=== PATIENT | male | born 1935 | race Two or more races ===

== ENCOUNTER → 2016-09-09 | Outpatient (REF) | payer MEDICARE, MEDICAID ==
[2016-09-09 12:20] LABS: ALBUMIN 3.8 GM/DL (3.2-5.2); ALBUMIN/GLOBULIN RATIO 1.31 (1.00-1.93); BILIRUBIN,TOTAL 0.5 MG/DL (0.2-1.0); CALCIUM LEVEL 8.6 MG/DL (8.8-10.2); CREATININE FOR GFR 1.31 MG/DL (0.70-1.30); GLOMERULAR FILTRATION RATE 55.9 (>35); POTASSIUM SERUM 4.5 MEQ/L (3.5-5.1); TOTAL PROTEIN 6.7 GM/DL (6.4-8.2)
== END ==
LOC: M SFHCPLAZ 08:56
PROVIDERS: ATTEND Internal Medicine
DX: E10.9 Type 1 diabetes mellitus without complications (principal); R97.20 Elevated prostate specific antigen [PSA]

== ENCOUNTER → 2017-03-10 | Outpatient (REF) | payer MEDICARE, MEDICAID ==
[~2017-03-10] MED LIST: ATOR1TAB21 PO; CYCL5TAB PO; INSUHUMDS SQ; INSULANT SQ; LOSA50TA20 PO
[2017-03-10 11:30] LABS: MEAN CORPUSCULAR HEMOGLOBIN 31.3 pg (27.0-33.0); MEAN CORPUSCULAR HGB CONC 32.8 g/dl (32.0-36.5); MEAN CORPUSCULAR VOLUME 95.5 fl (80.0-96.0); RED CELL DISTRIBUTION WIDTH 12.8 % (11.5-14.5); WHITE BLOOD COUNT 6.4 K/mm3 (4.0-10.0)
[2017-03-10 12:59] LABS: ALBUMIN 3.8 GM/DL (3.2-5.2); ALBUMIN/GLOBULIN RATIO 1.23 (1.00-1.93); BILIRUBIN,TOTAL 0.6 MG/DL (0.2-1.0); CALCIUM LEVEL 8.9 MG/DL (8.8-10.2); CREATININE FOR GFR 1.38 MG/DL (0.70-1.30); GLOMERULAR FILTRATION RATE 52.5 (>35); POTASSIUM SERUM 4.9 MEQ/L (3.5-5.1); TOTAL PROTEIN 6.9 GM/DL (6.4-8.2)
== END ==
LOC: M LABDRAW1 08:06
PROVIDERS: ATTEND Internal Medicine
DX: I25.10 Atherosclerotic heart disease of native coronary artery without angina pectoris (principal); E10.9 Type 1 diabetes mellitus without complications; E78.00 Pure hypercholesterolemia, unspecified; R97.20 Elevated prostate specific antigen [PSA]

== ENCOUNTER 2017-04-22 09:18 | Emergency (ER) | payer MEDICARE, MEDICAID ==
[~2017-04-22] VITALS: Ht 170.2 cm; Wt 70.5 kg
[2017-04-22] MEDS ORDERED: LOSA50TA20 PO (09:41)
[2017-04-22] MEDS ORDERED: ATOR1TAB21 PO (09:41)
[2017-04-22] MEDS ORDERED: INSUHUMDS SQ (09:41)
[2017-04-22] MEDS ORDERED: INSULANT SQ (09:41)
--- NOTE | 2017-04-22 10:53 | REP ---
PORTABLE CHEST: AP portable view of the chest is performed and compared to a prior study of 01/14/2012. There is no acute infiltrate or pulmonary edema. Heart does not appear to be significantly enlarged. Mediastinal silhouette is unchanged. There are multiple sternal wires and mediastinal clips present. IMPRESSION: No acute infiltrate. Signed by Daniol Delgado MD 04/22/2017 04:41 P
[2017-04-22 10:54] LABS: BASO % 0.4 % (0.0-1.0); EOS # 0.2 K/mm3 (0.0-0.50); EOS % 4.4 % (0.0-3.0); LARGE UNSTAINED CELL # 0.1 K/mm3 (0.0-0.4); LARGE UNSTAINED CELL % 2.2 % (0.0-4.0); LYMPH # 1.1 K/mm3 (1.5-4.5); LYMPH % 21.1 % (24.0-44.0); MEAN CORPUSCULAR HEMOGLOBIN 31.3 pg (27.0-33.0); MEAN CORPUSCULAR HGB CONC 32.6 g/dl (32.0-36.5); MEAN CORPUSCULAR VOLUME 95.8 fl (80.0-96.0); MONO # 0.5 K/mm3 (0.0-0.8); MONO % 8.5 % (0.0-5.0); NEUTROPHILS # 3.4 K/mm3 (1.8-7.7); NEUTROPHILS % 63.5 % (36.0-66.0); PLATELET COUNT, AUTOMATED 231 k/mm3 (150-450); RED CELL DISTRIBUTION WIDTH 12.5 % (11.5-14.5); WHITE BLOOD COUNT 5.3 K/mm3 (4.0-10.0)
[2017-04-22 11:09] LABS: INR 1.1
[2017-04-22 11:10] LABS: ALBUMIN 3.7 GM/DL (3.2-5.2); ALBUMIN/GLOBULIN RATIO 0.95 (1.00-1.93); ALKALINE PHOSPHATASE 93 U/L (45-117); ALT/SGPT 22 U/L (12-78); ANION GAP 5 MEQ/L (8-16); AST/SGOT 38 U/L (15-37); BILIRUBIN,DIRECT 0.2 MG/DL (0.0-0.2); BILIRUBIN,TOTAL 0.7 MG/DL (0.2-1.0); BLOOD UREA NITROGEN 31 MG/DL (7-18); CALCIUM LEVEL 8.6 MG/DL (8.8-10.2); CARBON DIOXIDE LEVEL 29 MEQ/L (21-32); CHLORIDE LEVEL 103 MEQ/L (98-107); CREATININE FOR GFR 1.56 MG/DL (0.70-1.30); FREE T4 1.13 NG/DL (0.76-1.46); GLOMERULAR FILTRATION RATE 45.6 (>35); GLUCOSE, FASTING 298 MG/DL (83-110); POTASSIUM SERUM 4.9 MEQ/L (3.5-5.1); SODIUM LEVEL 137 MEQ/L (136-145); TOTAL PROTEIN 7.6 GM/DL (6.4-8.2)
[2017-04-22 12:48] VITALS: BP 192/81
[2017-04-22] MEDS ORDERED: CYCL5TAB PO (12:58)
[2017-04-22] MEDS ORDERED: CYCLOBENZAPRINE 5MG TABLET PO ONE (13:00)
[2017-04-22] MEDS ORDERED: ACETAMINOPHEN TAB 650MG DOSE (2X325MG) PO ONE (13:00)
--- NOTE | 2017-04-22 18:36 | ECGEPIP ---
Stationary ECG Study [facility] - ED Test Date: 2017-04-22 Pat Name: CEDRIC STEELE Department: Room: - Gender: M Cash Surrender Calculator: DAVE : 1935 Requested By: Helen Toro Order Number: [id number] Reading MD: Yg Novoa Measurements Intervals [place] Rate: 58 P: -4 NH: 168 QRS: 5 QRSD: 86 T: 43 QT: 401 QTc: 396 Interpretive Statements SINUS BRADYCARDIA Electronically Signed On 04-22-2017 18:36:34 EDT by Yg Novoa
== END 2017-04-22 13:14 | disposition home or self-care (01) ==
LOC: M ED 09:18
DX: S16.1XXA Strain of muscle, fascia and tendon at neck level, initial encounter (principal); X58.XXXA Exposure to other specified factors, initial encounter; Y92.9 Unspecified place or not applicable; Y93.9 Activity, unspecified; Y99.9 Unspecified external cause status; R00.1 Bradycardia, unspecified; I51.9 Heart disease, unspecified; E11.9 Type 2 diabetes mellitus without complications; I10 Essential (primary) hypertension; Z95.1 Presence of aortocoronary bypass graft; Z79.4 Long term (current) use of insulin; Z79.899 Other long term (current) drug therapy

== ENCOUNTER → 2017-09-23 | Outpatient (REF) | payer MEDICARE, MEDICAID ==
[2017-09-23 11:10] LABS: ALBUMIN 3.8 GM/DL (3.2-5.2); ALBUMIN/GLOBULIN RATIO 1.36 (1.00-1.93); ALKALINE PHOSPHATASE 89 U/L (45-117); ALT/SGPT 14 U/L (12-78); ANION GAP 9 MEQ/L (8-16); AST/SGOT 16 U/L (7-37); BILIRUBIN,TOTAL 0.7 MG/DL (0.2-1.0); BLOOD UREA NITROGEN 28 MG/DL (7-18); CALCIUM LEVEL 8.8 MG/DL (8.8-10.2); CARBON DIOXIDE LEVEL 26 MEQ/L (21-32); CHLORIDE LEVEL 106 MEQ/L (98-107); CREATININE FOR GFR 1.34 MG/DL (0.70-1.30); GLOMERULAR FILTRATION RATE 54.3 (>35); GLUCOSE, FASTING 161 MG/DL (70-100); MAGNESIUM LEVEL 2.1 MG/DL (1.8-2.4); SODIUM LEVEL 141 MEQ/L (136-145); TOTAL PROTEIN 6.6 GM/DL (6.4-8.2)
[2017-09-23 11:13] LABS: POTASSIUM SERUM 5.4 MEQ/L (3.5-5.1)
[2017-09-23 11:38] LABS: ESTIMATED AVERAGE GLUCOSE 203 MG/DL (60-110); HEMOGLOBIN A1c 8.7 %
[2017-09-23 11:44] LABS: MALB URINE SIEMENS 33.9 MG/L; MAU/CREAT RATIO 51.3 MCG/MG (0.0-30.0)
[2017-09-23 12:19] LABS: PTH INTACT 107.6 PG/ML (14.0-72.0)
== END ==
LOC: M SFHCPLAZ 07:45
DX: E10.9 Type 1 diabetes mellitus without complications (principal); I10 Essential (primary) hypertension; N18.3 Chronic kidney disease, stage 3 (moderate)
CPT/HCPCS: 83735

== ENCOUNTER 2017-10-10 18:46 | Emergency (ER) | payer MEDICARE, MEDICAID ==
[2017-10-10] MEDS: NORCO 5/325MG TABLET (BULK FOR ED) PO (19:36)
[2017-10-10] MEDS: NORCO, ANEXSIA 5/325MG TABLET (HYDROcodone/ACETAMINOPHEN) PO (19:36)
== END 2017-10-10 19:40 | disposition home or self-care (01) ==
LOC: M ED 18:46
DX: S42.294A Other nondisplaced fracture of upper end of right humerus, initial encounter for closed fracture (principal); W01.190A Fall on same level from slipping, tripping and stumbling with subsequent striking against furniture, initial encounter; Y92.099 Unspecified place in other non-institutional residence as the place of occurrence of the external cause; Y93.9 Activity, unspecified; E11.9 Type 2 diabetes mellitus without complications; I10 Essential (primary) hypertension; Z95.1 Presence of aortocoronary bypass graft; Z79.82 Long term (current) use of aspirin; Z79.4 Long term (current) use of insulin; Z79.899 Other long term (current) drug therapy
CPT/HCPCS: 73030

== ENCOUNTER 2017-10-21 23:39 | Emergency (ER) | payer MEDICARE, MEDICAID ==
[2017-10-22 00:46] LABS: HEMATOCRIT 29.5 % (42.0-52.0); HEMOGLOBIN 9.8 g/dl (14.0-18.0); MEAN CORPUSCULAR HEMOGLOBIN 30.5 pg (27.0-33.0); MEAN CORPUSCULAR HGB CONC 33.2 g/dl (32.0-36.5); MEAN CORPUSCULAR VOLUME 91.9 fl (80.0-96.0); PLATELET COUNT, AUTOMATED 335 10^3/uL (150-450); RED BLOOD COUNT 3.21 10^6/uL (4.30-6.10); RED CELL DISTRIBUTION WIDTH 12.2 % (11.5-14.5); VENOUS BASE EXCESS -2.2 (-2.0-2.0); VENOUS HCO3 21.1 MEQ/L (23.0-27.0); VENOUS O2 SATURATION 66.1 % (60.0-80.0); VENOUS PARTIAL PRESSURE CO2 31.3 mmHg (38.0-50.0); VENOUS PARTIAL PRESSURE O2 32.3 mmHg (30.0-50.0); VENOUS PH 7.447 UNITS (7.330-7.430); VENOUS STANDARD HCO3 22.1 MEQ/L; VENOUS TOTAL CO2 22.1 MEQ/L (24.0-28.0); WHITE BLOOD COUNT 18.9 10^3/uL (4.0-10.0)
[2017-10-22] MEDS: NS 500 ML IV (00:51)
[2017-10-22 00:54] LABS: POSITIVE MORPH POS FLAG
[2017-10-22 00:55] LABS: ADD MANUAL DIFFER YES; DIFF SLIDE NUMBER 85
[2017-10-22 01:16] LABS: BANDS 1 % (< 11); EOSINOPHILS 1 % (0-5); LYMPHOCYTES 3 % (16-52); MONOCYTES 4 % (0-8); NEUTROPHILS 91 % (35-75); PLATELET ESTIMATE NORMAL (NORMAL)
[2017-10-22 01:17] LABS: OSMOLALITY SERUM 282 MOSM/KG (280-301)
[2017-10-22 01:20] LABS: ALBUMIN 2.7 GM/DL (3.2-5.2); ALBUMIN/GLOBULIN RATIO 0.71 (1.00-1.93); ALKALINE PHOSPHATASE 81 U/L (45-117); ALT/SGPT 17 U/L (12-78); ANION GAP 10 MEQ/L (8-16); BLOOD UREA NITROGEN 28 MG/DL (7-18); CALCIUM LEVEL 8.1 MG/DL (8.8-10.2); CARBON DIOXIDE LEVEL 25 MEQ/L (21-32); CHLORIDE LEVEL 99 MEQ/L (98-107); CK-MB VALUE MASS 1.4 NG/ML (0.0-3.6); CPK CREATINE PHOSPHOKINASE 408 U/L (39-308); CREATININE FOR GFR 1.59 MG/DL (0.70-1.30); ETHYL ALCOHOL (ETHANOL) < 0.003 % (0.000-0.010); GLOMERULAR FILTRATION RATE 44.5 (>35); GLUCOSE, FASTING 91 MG/DL (70-100); MB/CK RELATIVE INDEX 0.34 (< OR =4); POTASSIUM SERUM 3.9 MEQ/L (3.5-5.1); SALICYLATE LEVEL < 1.7 MG/DL (5.0-30.0); SODIUM LEVEL 134 MEQ/L (136-145); TOTAL PROTEIN 6.5 GM/DL (6.4-8.2); TROPONIN I < 0.02 NG/ML (< 0.10)
[2017-10-22 01:33] LABS: ACETAMINOPHEN LEVEL < 2.0 UG/ML (10.0-30.0); BILIRUBIN,TOTAL 1.1 MG/DL (0.2-1.0)
[2017-10-22 01:34] LABS: AST/SGOT 35 U/L (7-37); BILIRUBIN,DIRECT 0.4 MG/DL (0.0-0.2)
[2017-10-22 01:36] LABS: AMPHETAMINES LEVEL URINE NEGATIVE (NEGATIVE); BARBITURATES URINE NEGATIVE (NEGATIVE); BENZODIAZEPINES URINE NEGATIVE (NEGATIVE); CANNABINOIDS URINE NEGATIVE (NEGATIVE); COCAINE METABOLITE URINE NEGATIVE (NEGATIVE); METHADONE URINE NEGATIVE (NEGATIVE); OPIATES URINE POSITIVE (NEGATIVE); PHENCYCLIDINE URINE NEGATIVE (NEGATIVE)
[2017-10-22 01:59] LABS: AMORPHOUS SEDIMENT RFX SMALL (NEGATIVE); KETONE, URINE AUTO RFX TRACE mg/dL (NEGATIVE); LEUKOCYTE ESTERASE UR AUTO RFX NEGATIVE (NEGATIVE); MUCUS, URINE RFX SMALL (NEGATIVE); NITRITE, URINE AUTO RFX NEGATIVE (NEGATIVE); RBC, URINE AUTO RFX 2 /HPF (0-3); SPECIFIC GRAVITY UR AUTO RFX 1.014 (1.002-1.035); SQUAM EPITHELIAL CELL UR AURFX 0 /HPF (0-6); WBC, URINE AUTO RFX 1 /HPF (0-3)
[2017-10-22] MEDS: ACETAMINOPHEN TAB 650MG DOSE (2X325MG) PO (02:09)
[2017-10-22] MEDS: PIPERACILLIN/TAZOBACTAM SOD 3.375 GM in APPROPRIATE DILUENT 1 EA IV (03:00)
[2017-10-22 10:33] LABS: BEDSIDE GLUCOSE 100 MG/DL (83-110)
== END 2017-10-22 05:04 | disposition short-term general hospital (02) ==
LOC: M ED 23:39
DX: R41.82 Altered mental status, unspecified (principal); T84.59XA Infection and inflammatory reaction due to other internal joint prosthesis, initial encounter; Y79.2 Prosthetic and other implants, materials and accessory orthopedic devices associated with adverse incidents; I10 Essential (primary) hypertension; E78.00 Pure hypercholesterolemia, unspecified; E11.9 Type 2 diabetes mellitus without complications; Z79.899 Other long term (current) drug therapy; Z79.01 Long term (current) use of anticoagulants; Z79.4 Long term (current) use of insulin
CPT/HCPCS: J2543

== ENCOUNTER 2017-11-20 21:01 | Inpatient (IN) | payer MEDICARE, MEDICAID ==
[2017-11-20] MEDS ORDERED: LORazepam 2 MG/ML VIAL (J2060) As Ordered (21:34)
[2017-11-20] MEDS ORDERED: HALOPERIDOL 5 MG/ML VIAL (J1630) As Ordered (21:44)
[2017-11-20] MEDS: LORazepam 2 MG/ML VIAL (J2060) IV (21:44)
[2017-11-20] MEDS: NS 1,000 ML IV ×2 (21:45→22:45)
[2017-11-20] MEDS: HALOPERIDOL 5 MG/ML VIAL (J1630) IM (21:48)
[2017-11-20 22:04] LABS: VENOUS HCO3 18.7 MEQ/L (23.0-27.0); VENOUS O2 SATURATION 98.9 % (60.0-80.0); VENOUS PARTIAL PRESSURE CO2 30.5 mmHg (38.0-50.0); VENOUS PARTIAL PRESSURE O2 136.5 mmHg (30.0-50.0); VENOUS PH 7.406 UNITS (7.330-7.430); VENOUS STANDARD HCO3 20.4 MEQ/L; VENOUS TOTAL CO2 19.7 MEQ/L (24.0-28.0)
[2017-11-20 22:08] LABS: BASO % 0.4 % (0.0-1.0); EOS # 0.4 10^3/uL (0.0-0.50); EOS % 4.9 % (0.0-3.0); HEMATOCRIT 32.3 % (42.0-52.0); HEMOGLOBIN 10.4 g/dl (14.0-18.0); IMMATURE GRANULOCYTE % 0.3 % (0-3.0); LYMPH # 1.8 10^3/uL (1.5-4.5); LYMPH % 25.1 % (24.0-44.0); MEAN CORPUSCULAR HEMOGLOBIN 30.8 pg (27.0-33.0); MEAN CORPUSCULAR HGB CONC 32.2 g/dl (32.0-36.5); MEAN CORPUSCULAR VOLUME 95.6 fl (80.0-96.0); MONO # 0.9 10^3/uL (0.0-0.8); MONO % 12.2 % (0.0-5.0); NEUTROPHILS # 4.1 10^3/uL (1.8-7.7); NEUTROPHILS % 57.1 % (36.0-66.0); PLATELET COUNT, AUTOMATED 303 10^3/uL (150-450); RED BLOOD COUNT 3.38 10^6/uL (4.30-6.10); RED CELL DISTRIBUTION WIDTH 14.3 % (11.5-14.5); WHITE BLOOD COUNT 7.2 10^3/uL (4.0-10.0)
[2017-11-20 22:10] LABS: KETONE, URINE AUTO RFX NEGATIVE (NEGATIVE); LEUKOCYTE ESTERASE UR AUTO RFX NEGATIVE (NEGATIVE); NITRITE, URINE AUTO RFX NEGATIVE (NEGATIVE); RBC, URINE AUTO RFX 2 /HPF (0-3); SPECIFIC GRAVITY UR AUTO RFX 1.024 (1.002-1.035); SQUAM EPITHELIAL CELL UR AURFX 1 /HPF (0-6); WBC, URINE AUTO RFX 0 /HPF (0-3)
[2017-11-20 22:27] LABS: AMMONIA 30 uMOL/L (<32)
[2017-11-20 22:30] LABS: OSMOLALITY SERUM 312 MOSM/KG (280-301)
[2017-11-20 22:36] LABS: LACTIC ACID SEPSIS PROTOCOL 6.6 MMOL/L (0.4-2.0)
[2017-11-20 22:41] LABS: ALBUMIN 3.7 GM/DL (3.2-5.2); ALBUMIN/GLOBULIN RATIO 1.03 (1.00-1.93); ALKALINE PHOSPHATASE 152 U/L (45-117); ALT/SGPT 18 U/L (12-78); ANION GAP 16 MEQ/L (8-16); AST/SGOT 15 U/L (7-37); BILIRUBIN,DIRECT 0.2 MG/DL (0.0-0.2); BILIRUBIN,TOTAL 0.5 MG/DL (0.2-1.0); BLOOD UREA NITROGEN 31 MG/DL (7-18); CALCIUM LEVEL 8.6 MG/DL (8.8-10.2); CARBON DIOXIDE LEVEL 19 MEQ/L (21-32); CHLORIDE LEVEL 101 MEQ/L (98-107); CPK CREATINE PHOSPHOKINASE 90 U/L (39-308); CREATININE FOR GFR 1.67 MG/DL (0.70-1.30); POTASSIUM SERUM 4.4 MEQ/L (3.5-5.1); SODIUM LEVEL 136 MEQ/L (136-145); TOTAL PROTEIN 7.3 GM/DL (6.4-8.2); TROPONIN I 0.02 NG/ML (< 0.10)
[2017-11-20 22:44] LABS: GLUCOSE, FASTING 478 MG/DL (70-100)
[2017-11-20 22:51] LABS: CK-MB VALUE MASS 1.9 NG/ML (<3.6); MB/CK RELATIVE INDEX 2.11 (< OR =4)
[2017-11-21] MEDS ORDERED: PIPERACILLIN/TAZOBACTAM SOD 3.375 GM in APPROPRIATE DILUENT 1 EA IV (03:00)
[2017-11-21] MEDS ORDERED: GLUCOSE 4 GM CHEW TABLET PO (03:15)
[2017-11-21] MEDS ORDERED: GLUCAGON FOR INJ 1 MG VIAL (J1610) SC (03:15)
[2017-11-21 03:16] LABS: BEDSIDE GLUCOSE 529 MG/DL (83-110)
[2017-11-21 04:14] LABS: BEDSIDE GLUCOSE 431 MG/DL (83-110)
[2017-11-21] MEDS: NS 1,000 ML IV ×3 (04:55→14:16)
[2017-11-21] MEDS: HumaLOG INSULIN (NovoLOG) PER UNIT SC ×5 (04:56→21:00)
[2017-11-21] MEDS: VANCOMYCIN HCL 1,000 MG, VIAL MATE ADAPTER 1 EACH in D5W 250 ML IV ×2 (04:56→22:15)
[2017-11-21] MEDS: PIPERACILLIN/TAZOBACTAM SOD 3.375 GM in APPROPRIATE DILUENT 1 EA IV (05:16)
[2017-11-21] MEDS: HEPARIN SOD (PORCINE) 5000 UNITS/ML VIAL SC ×3 (06:44→22:17)
[2017-11-21 06:55] LABS: BEDSIDE GLUCOSE 327 MG/DL (83-110)
[2017-11-21] MEDS: hydrALAZINE INJ 20 MG/ML VIAL IV ×5 (07:10→22:16)
[2017-11-21 08:01] LABS: VENOUS BASE EXCESS -1.4 (-2.0-2.0); VENOUS HCO3 21.3 MEQ/L (23.0-27.0); VENOUS O2 SATURATION 99.3 % (60.0-80.0); VENOUS PARTIAL PRESSURE CO2 29.2 mmHg (38.0-50.0); VENOUS PARTIAL PRESSURE O2 160.7 mmHg (30.0-50.0); VENOUS PH 7.481 UNITS (7.330-7.430); VENOUS STANDARD HCO3 23.4 MEQ/L; VENOUS TOTAL CO2 22.2 MEQ/L (24.0-28.0)
[2017-11-21] MEDS: LEVEMIR (INSULIN DETEMIR) 1 UNITS/0.01ML SC (08:02)
[2017-11-21 08:04] LABS: BASO % 0.4 % (0.0-1.0); EOS % 0.4 % (0.0-3.0); HEMATOCRIT 29.9 % (42.0-52.0); HEMOGLOBIN 9.7 g/dl (14.0-18.0); IMMATURE GRANULOCYTE % 0.4 % (0-3.0); LYMPH # 0.8 10^3/uL (1.5-4.5); LYMPH % 10.7 % (24.0-44.0); MEAN CORPUSCULAR HEMOGLOBIN 30.3 pg (27.0-33.0); MEAN CORPUSCULAR HGB CONC 32.4 g/dl (32.0-36.5); MEAN CORPUSCULAR VOLUME 93.4 fl (80.0-96.0); MONO # 0.4 10^3/uL (0.0-0.8); MONO % 5.6 % (0.0-5.0); NEUTROPHILS % 82.5 % (36.0-66.0); PLATELET COUNT, AUTOMATED 282 10^3/uL (150-450); RED CELL DISTRIBUTION WIDTH 14.1 % (11.5-14.5); WHITE BLOOD COUNT 7.3 10^3/uL (4.0-10.0)
[2017-11-21 08:20] LABS: INR 1.17; PROTHROMBIN TIME 15.1 SECONDS (12.4-14.5)
[2017-11-21 08:21] LABS: PARTIAL THROMBOPLASTIN TIME 58.8 SECONDS (26.8-37.9)
[2017-11-21 08:31] LABS: ALBUMIN 3.2 GM/DL (3.2-5.2); ALBUMIN/GLOBULIN RATIO 1.03 (1.00-1.93); ALKALINE PHOSPHATASE 138 U/L (45-117); ALT/SGPT 14 U/L (12-78); ANION GAP 7 MEQ/L (8-16); AST/SGOT 12 U/L (7-37); BILIRUBIN,TOTAL 0.7 MG/DL (0.2-1.0); BLOOD UREA NITROGEN 28 MG/DL (7-18); C REACTIVE PROTEIN QUANTITATIV 0.69 MG/DL (0.00-0.30); CALCIUM LEVEL 8.1 MG/DL (8.8-10.2); CARBON DIOXIDE LEVEL 24 MEQ/L (21-32); CHLORIDE LEVEL 106 MEQ/L (98-107); CPK CREATINE PHOSPHOKINASE 197 U/L (39-308); CREATININE FOR GFR 1.31 MG/DL (0.70-1.30); GLOMERULAR FILTRATION RATE 55.6 (>35); GLUCOSE, FASTING 321 MG/DL (70-100); SODIUM LEVEL 137 MEQ/L (136-145); TOTAL PROTEIN 6.3 GM/DL (6.4-8.2)
[2017-11-21 08:32] LABS: CK-MB VALUE MASS 1.2 NG/ML (<3.6)
[2017-11-21] MEDS: ATORVASTATIN 20 MG TAB PO (09:00)
[2017-11-21] MEDS: ASPIRIN 81 MG ENTERIC TAB PO (09:00)
[2017-11-21] MEDS: LOSARTAN 50 MG TAB PO (09:00)
[2017-11-21] MEDS: LORazepam 2 MG/ML VIAL (J2060) IV (09:09)
[2017-11-21 09:19] LABS: ACETONE/KETONE 2.45 MG/DL (<2.81)
[2017-11-21] MEDS: HALOPERIDOL 5 MG/ML VIAL (J1630) IV (09:30)
[2017-11-21 11:15] LABS: BEDSIDE GLUCOSE 101 MG/DL (83-110)
[2017-11-21] MEDS: DEXTROSE 50% 50 ML SYRINGE IV (12:47)
[2017-11-21 12:52] LABS: BEDSIDE GLUCOSE 59 MG/DL (83-110)
[2017-11-21 13:24] LABS: BEDSIDE GLUCOSE 116 MG/DL (83-110)
[2017-11-21 14:35] LABS: CK-MB VALUE MASS < 1.0 NG/ML (<3.6); CPK CREATINE PHOSPHOKINASE 194 U/L (39-308); MB/CK RELATIVE INDEX 0.51 (< OR =4); TROPONIN I 0.07 NG/ML (< 0.10)
[2017-11-21 15:20] LABS: BEDSIDE GLUCOSE 96 MG/DL (83-110)
[2017-11-21] MEDS: D5W/0.9% SODIUM CHLORIDE 1,000 ML IV ×2 (15:48→22:17)
[2017-11-21 18:46] LABS: BEDSIDE GLUCOSE 160 MG/DL (83-110)
[2017-11-21 18:48] LABS: CSF TUBE# GLU TUBE 2; CSF TUBE# TP TUBE 2; GLUCOSE CSF 65 MG/DL (40-75); TOTAL PROTEIN,CSF 77.6 MG/DL (15-45)
[2017-11-21 19:37] LABS: CSF RBC < 2 10^3/uL (<2); CSF WBC 20 /uL (0-10)
[2017-11-21 19:39] LABS: CSF MONONUCLEAR CELL % 31.8 % (0-0); CSF POLYMORPHONUCLEAR CELL % 68.2 % (0-0); CSF RBC < 2 10^3/uL (<2); CSF WBC 22 /uL (0-10)
[2017-11-21 19:46] LABS: APPEARANCE, CSF CLEAR (CLEAR); COLOR, CSF COLORLESS (COLORLESS); CSF DIFF IF INDICATED? YES (NO); CSF TUBE# CELL CNT TUBE 1
[2017-11-21 19:47] LABS: APPEARANCE, CSF CLEAR (CLEAR); COLOR, CSF COLORLESS (COLORLESS); CSF DIFF IF INDICATED? YES (NO); CSF TUBE# CELL CNT TUBE 4
[2017-11-21] MEDS: levETIRAcetam 250MG TABLET (KEPPRA) PO (21:00)
[2017-11-21 21:33] LABS: BEDSIDE GLUCOSE 100 MG/DL (83-110)
[2017-11-21] MEDS: cefTRIAXone SOD 2 GM in D5W MINI-BAG PLUS 50 ML IV (23:25)
[2017-11-22] MEDS: AMPICILLIN SOD 2 GM in D5W MINI-BAG PLUS 100 ML IV ×4 (00:42→17:14)
[2017-11-22] MEDS: hydrALAZINE INJ 20 MG/ML VIAL IV ×6 (02:00→21:18)
[2017-11-22 04:36] LABS: BASO % 0.3 % (0.0-1.0); EOS # 0.2 10^3/uL (0.0-0.50); EOS % 3.2 % (0.0-3.0); HEMATOCRIT 31.1 % (42.0-52.0); HEMOGLOBIN 9.9 g/dl (14.0-18.0); IMMATURE GRANULOCYTE % 0.1 % (0-3.0); LYMPH # 1.4 10^3/uL (1.5-4.5); LYMPH % 19.5 % (24.0-44.0); MEAN CORPUSCULAR HEMOGLOBIN 29.4 pg (27.0-33.0); MEAN CORPUSCULAR HGB CONC 31.8 g/dl (32.0-36.5); MEAN CORPUSCULAR VOLUME 92.3 fl (80.0-96.0); MONO # 0.8 10^3/uL (0.0-0.8); MONO % 10.6 % (0.0-5.0); NEUTROPHILS # 4.8 10^3/uL (1.8-7.7); NEUTROPHILS % 66.3 % (36.0-66.0); PLATELET COUNT, AUTOMATED 285 10^3/uL (150-450); RED BLOOD COUNT 3.37 10^6/uL (4.30-6.10); RED CELL DISTRIBUTION WIDTH 14.3 % (11.5-14.5); WHITE BLOOD COUNT 7.2 10^3/uL (4.0-10.0)
[2017-11-22 04:57] LABS: ANION GAP 10 MEQ/L (8-16); BLOOD UREA NITROGEN 22 MG/DL (7-18); CALCIUM LEVEL 7.8 MG/DL (8.8-10.2); CARBON DIOXIDE LEVEL 22 MEQ/L (21-32); CHLORIDE LEVEL 106 MEQ/L (98-107); CREATININE FOR GFR 1.15 MG/DL (0.70-1.30); GLOMERULAR FILTRATION RATE > 60.0 (>35); GLUCOSE, FASTING 336 MG/DL (70-100); MAGNESIUM LEVEL 1.6 MG/DL (1.8-2.4); POTASSIUM SERUM 3.7 MEQ/L (3.5-5.1); SODIUM LEVEL 138 MEQ/L (136-145)
[2017-11-22] MEDS: D5W/0.9% SODIUM CHLORIDE 1,000 ML IV (05:54)
[2017-11-22] MEDS: HEPARIN SOD (PORCINE) 5000 UNITS/ML VIAL SC ×3 (05:55→21:17)
[2017-11-22] MEDS: HumaLOG INSULIN (NovoLOG) PER UNIT SC ×4 (07:38→21:00)
[2017-11-22] MEDS: ATORVASTATIN 20 MG TAB PO (08:23)
[2017-11-22] MEDS: ASPIRIN 81 MG ENTERIC TAB PO (08:24)
[2017-11-22] MEDS: LOSARTAN 50 MG TAB PO (08:24)
[2017-11-22] MEDS: LEVEMIR (INSULIN DETEMIR) 1 UNITS/0.01ML SC (08:25)
[2017-11-22] MEDS: MAG SULF 1GM/100ML (MAG RUN) 1 GM in APPROPRIATE DILUENT 1 EA IV (08:50)
[2017-11-22] MEDS: cefTRIAXone SOD 2 GM in D5W MINI-BAG PLUS 50 ML IV ×2 (09:47→21:18)
[2017-11-22 11:19] LABS: BEDSIDE GLUCOSE 263 MG/DL (83-110)
[2017-11-22] MEDS ORDERED: PROHANCE 279.3MG/ML 15ML VIAL (A9576) As Ordered (12:10)
[2017-11-22] MEDS ORDERED: levETIRAcetam INJection 500 MG in D5W MINI-BAG PLUS 100 ML IV (15:00)
[2017-11-22 16:56] LABS: BEDSIDE GLUCOSE 206 MG/DL (83-110)
[2017-11-22] MEDS: levETIRAcetam INJection 500 MG in D5W MINI-BAG PLUS 100 ML IV (17:57)
[2017-11-22] MEDS: VANCOMYCIN HCL 1,000 MG, VIAL MATE ADAPTER 1 EACH in D5W 250 ML IV (22:20)
[2017-11-23] MEDS: AMPICILLIN SOD 2 GM in D5W MINI-BAG PLUS 100 ML IV ×3 (00:46→12:15)
[2017-11-23] MEDS: hydrALAZINE INJ 20 MG/ML VIAL IV ×6 (03:00→22:00)
[2017-11-23 03:59] LABS: BASO % 0.5 % (0.0-1.0); EOS # 0.8 10^3/uL (0.0-0.50); EOS % 10.1 % (0.0-3.0); HEMATOCRIT 31.8 % (42.0-52.0); HEMOGLOBIN 10.3 g/dl (14.0-18.0); IMMATURE GRANULOCYTE % 0.4 % (0-3.0); LYMPH % 24.6 % (24.0-44.0); MEAN CORPUSCULAR HEMOGLOBIN 30.2 pg (27.0-33.0); MEAN CORPUSCULAR HGB CONC 32.4 g/dl (32.0-36.5); MEAN CORPUSCULAR VOLUME 93.3 fl (80.0-96.0); MONO # 0.9 10^3/uL (0.0-0.8); MONO % 10.8 % (0.0-5.0); NEUTROPHILS # 4.3 10^3/uL (1.8-7.7); NEUTROPHILS % 53.6 % (36.0-66.0); PLATELET COUNT, AUTOMATED 286 10^3/uL (150-450); RED BLOOD COUNT 3.41 10^6/uL (4.30-6.10); RED CELL DISTRIBUTION WIDTH 14.1 % (11.5-14.5); WHITE BLOOD COUNT 8.1 10^3/uL (4.0-10.0)
[2017-11-23 04:23] LABS: ANION GAP 7 MEQ/L (8-16); BLOOD UREA NITROGEN 20 MG/DL (7-18); CARBON DIOXIDE LEVEL 24 MEQ/L (21-32); CHLORIDE LEVEL 106 MEQ/L (98-107); CREATININE FOR GFR 1.35 MG/DL (0.70-1.30); GLOMERULAR FILTRATION RATE 53.7 (>35); GLUCOSE, FASTING 255 MG/DL (70-100); MAGNESIUM LEVEL 1.9 MG/DL (1.8-2.4); SODIUM LEVEL 137 MEQ/L (136-145)
[2017-11-23] MEDS: HEPARIN SOD (PORCINE) 5000 UNITS/ML VIAL SC ×3 (05:33→22:19)
[2017-11-23] MEDS: LACTOBACILLUS ACIDOPHILUS CAP (BACID) PO ×3 (08:17→22:18)
[2017-11-23] MEDS: ASPIRIN 81 MG ENTERIC TAB PO (08:17)
[2017-11-23] MEDS: LOSARTAN 50 MG TAB PO (08:17)
[2017-11-23] MEDS: ATORVASTATIN 20 MG TAB PO (08:17)
[2017-11-23] MEDS: LEVEMIR (INSULIN DETEMIR) 1 UNITS/0.01ML SC (08:18)
[2017-11-23] MEDS: HumaLOG INSULIN (NovoLOG) PER UNIT SC ×4 (08:18→20:55)
[2017-11-23] MEDS: cefTRIAXone SOD 2 GM in D5W MINI-BAG PLUS 50 ML IV (10:13)
[2017-11-23] MEDS: ACETAMINOPHEN TAB 650MG DOSE (2X325MG) PO ×2 (18:16→22:19)
[2017-11-23 20:51] LABS: BEDSIDE GLUCOSE 148 MG/DL (83-110)
[2017-11-24] MEDS: HEPARIN SOD (PORCINE) 5000 UNITS/ML VIAL SC ×3 (05:26→21:12)
[2017-11-24 05:33] LABS: BASO % 0.5 % (0.0-1.0); EOS % 16.1 % (0.0-3.0); HEMOGLOBIN 9.4 g/dl (14.0-18.0); IMMATURE GRANULOCYTE % 0.3 % (0-3.0); LYMPH # 1.7 10^3/uL (1.5-4.5); LYMPH % 27.6 % (24.0-44.0); MEAN CORPUSCULAR HEMOGLOBIN 30.5 pg (27.0-33.0); MEAN CORPUSCULAR HGB CONC 32.4 g/dl (32.0-36.5); MEAN CORPUSCULAR VOLUME 94.2 fl (80.0-96.0); MONO # 0.7 10^3/uL (0.0-0.8); MONO % 10.7 % (0.0-5.0); NEUTROPHILS # 2.8 10^3/uL (1.8-7.7); NEUTROPHILS % 44.8 % (36.0-66.0); PLATELET COUNT, AUTOMATED 274 10^3/uL (150-450); RED BLOOD COUNT 3.08 10^6/uL (4.30-6.10); RED CELL DISTRIBUTION WIDTH 14.3 % (11.5-14.5); WHITE BLOOD COUNT 6.3 10^3/uL (4.0-10.0)
[2017-11-24 05:55] LABS: ANION GAP 9 MEQ/L (8-16); BLOOD UREA NITROGEN 23 MG/DL (7-18); CALCIUM LEVEL 7.9 MG/DL (8.8-10.2); CARBON DIOXIDE LEVEL 24 MEQ/L (21-32); CHLORIDE LEVEL 106 MEQ/L (98-107); CREATININE FOR GFR 1.24 MG/DL (0.70-1.30); GLOMERULAR FILTRATION RATE 59.3 (>35); GLUCOSE, FASTING 167 MG/DL (70-100); MAGNESIUM LEVEL 2.2 MG/DL (1.8-2.4); SODIUM LEVEL 139 MEQ/L (136-145)
[2017-11-24] MEDS: LEVEMIR (INSULIN DETEMIR) 1 UNITS/0.01ML SC (10:20)
[2017-11-24] MEDS: HumaLOG INSULIN (NovoLOG) PER UNIT SC ×4 (10:20→21:00)
[2017-11-24] MEDS: LACTOBACILLUS ACIDOPHILUS CAP (BACID) PO ×3 (10:21→21:12)
[2017-11-24] MEDS: ASPIRIN 81 MG ENTERIC TAB PO (10:21)
[2017-11-24] MEDS: ATORVASTATIN 20 MG TAB PO (10:21)
[2017-11-24] MEDS: LOSARTAN 50 MG TAB PO (10:24)
[2017-11-24 12:58] LABS: BEDSIDE GLUCOSE 465 MG/DL (83-110)
[2017-11-24 17:37] LABS: BEDSIDE GLUCOSE 97 MG/DL (83-110)
[2017-11-24 21:15] LABS: BEDSIDE GLUCOSE 164 MG/DL (83-110)
[2017-11-25 00:07] LABS: HSV-1 DNA Negative (Negative); HSV-2 DNA Negative (Negative)
[2017-11-25] MEDS: HEPARIN SOD (PORCINE) 5000 UNITS/ML VIAL SC ×4 (05:21→21:28)
[2017-11-25 05:34] LABS: BASO % 0.6 % (0.0-1.0); EOS # 0.9 10^3/uL (0.0-0.50); EOS % 13.3 % (0.0-3.0); HEMATOCRIT 31.1 % (42.0-52.0); IMMATURE GRANULOCYTE % 0.4 % (0-3.0); LYMPH # 2.1 10^3/uL (1.5-4.5); LYMPH % 30.2 % (24.0-44.0); MEAN CORPUSCULAR HEMOGLOBIN 30.1 pg (27.0-33.0); MEAN CORPUSCULAR HGB CONC 32.2 g/dl (32.0-36.5); MEAN CORPUSCULAR VOLUME 93.7 fl (80.0-96.0); MONO # 0.7 10^3/uL (0.0-0.8); MONO % 10.4 % (0.0-5.0); NEUTROPHILS # 3.1 10^3/uL (1.8-7.7); NEUTROPHILS % 45.1 % (36.0-66.0); PLATELET COUNT, AUTOMATED 297 10^3/uL (150-450); RED BLOOD COUNT 3.32 10^6/uL (4.30-6.10); RED CELL DISTRIBUTION WIDTH 14.2 % (11.5-14.5); WHITE BLOOD COUNT 6.9 10^3/uL (4.0-10.0)
[2017-11-25 05:52] LABS: ANION GAP 5 MEQ/L (8-16); BLOOD UREA NITROGEN 25 MG/DL (7-18); CALCIUM LEVEL 8.5 MG/DL (8.8-10.2); CARBON DIOXIDE LEVEL 28 MEQ/L (21-32); CHLORIDE LEVEL 105 MEQ/L (98-107); CREATININE FOR GFR 1.24 MG/DL (0.70-1.30); GLOMERULAR FILTRATION RATE 59.3 (>35); GLUCOSE, FASTING 142 MG/DL (70-100); MAGNESIUM LEVEL 2.2 MG/DL (1.8-2.4); POTASSIUM SERUM 4.3 MEQ/L (3.5-5.1); SODIUM LEVEL 138 MEQ/L (136-145)
[2017-11-25] MEDS ORDERED: ISOVUE-370 76% 100ML VIAL (Q9967) As Ordered (07:39)
[2017-11-25] MEDS: HumaLOG INSULIN (NovoLOG) PER UNIT SC ×4 (08:30→21:28)
[2017-11-25] MEDS: LACTOBACILLUS ACIDOPHILUS CAP (BACID) PO ×3 (08:30→21:28)
[2017-11-25] MEDS: ATORVASTATIN 20 MG TAB PO (08:31)
[2017-11-25] MEDS: LOSARTAN 50 MG TAB PO (08:31)
[2017-11-25] MEDS: ASPIRIN 81 MG ENTERIC TAB PO (08:31)
[2017-11-25] MEDS: LEVEMIR (INSULIN DETEMIR) 1 UNITS/0.01ML SC (08:35)
[2017-11-25] MEDS: ACETAMINOPHEN TAB 650MG DOSE (2X325MG) PO (12:16)
[2017-11-25] MEDS ORDERED: SLF 3 ML SYR IV (13:00)
[2017-11-25] MEDS: SLF 3 ML SYR IV ×2 (15:06→21:29)
[2017-11-25 17:52] LABS: C REACTIVE PROTEIN QUANTITATIV 1.07 MG/DL (0.00-0.30)
[2017-11-25 18:46] LABS: BEDSIDE GLUCOSE 278 MG/DL (83-110)
[2017-11-25 23:47] LABS: BEDSIDE GLUCOSE 400 MG/DL (83-110)
[2017-11-26 00:07] LABS: Lyme Disease IgG/IgM Antibodie <0.91 ISR (0.00-0.90); Lyme Disease IgM Ab Quantitati <0.80 index (0.00-0.79)
[2017-11-26 05:01] LABS: BASO % 0.3 % (0.0-1.0); EOS # 0.5 10^3/uL (0.0-0.50); EOS % 6.8 % (0.0-3.0); HEMATOCRIT 28.2 % (42.0-52.0); HEMOGLOBIN 9.1 g/dl (14.0-18.0); IMMATURE GRANULOCYTE % 0.4 % (0-3.0); LYMPH # 1.8 10^3/uL (1.5-4.5); LYMPH % 23.8 % (24.0-44.0); MEAN CORPUSCULAR HGB CONC 32.3 g/dl (32.0-36.5); MEAN CORPUSCULAR VOLUME 93.1 fl (80.0-96.0); MONO # 0.7 10^3/uL (0.0-0.8); MONO % 8.8 % (0.0-5.0); NEUTROPHILS # 4.5 10^3/uL (1.8-7.7); NEUTROPHILS % 59.9 % (36.0-66.0); PLATELET COUNT, AUTOMATED 268 10^3/uL (150-450); RED BLOOD COUNT 3.03 10^6/uL (4.30-6.10); RED CELL DISTRIBUTION WIDTH 14.1 % (11.5-14.5); WHITE BLOOD COUNT 7.5 10^3/uL (4.0-10.0)
[2017-11-26 05:19] LABS: ANION GAP 8 MEQ/L (8-16); BLOOD UREA NITROGEN 23 MG/DL (7-18); CALCIUM LEVEL 7.8 MG/DL (8.8-10.2); CARBON DIOXIDE LEVEL 25 MEQ/L (21-32); CHLORIDE LEVEL 105 MEQ/L (98-107); CREATININE FOR GFR 1.27 MG/DL (0.70-1.30); GLOMERULAR FILTRATION RATE 57.7 (>35); GLUCOSE, FASTING 244 MG/DL (70-100); MAGNESIUM LEVEL 2.1 MG/DL (1.8-2.4); POTASSIUM SERUM 4.4 MEQ/L (3.5-5.1); SODIUM LEVEL 138 MEQ/L (136-145)
[2017-11-26] MEDS: HEPARIN SOD (PORCINE) 5000 UNITS/ML VIAL SC ×2 (05:52→13:37)
[2017-11-26] MEDS: SLF 3 ML SYR IV ×2 (05:53→13:37)
[2017-11-26] MEDS: LACTOBACILLUS ACIDOPHILUS CAP (BACID) PO ×2 (08:29→16:09)
[2017-11-26] MEDS: HumaLOG INSULIN (NovoLOG) PER UNIT SC ×3 (08:29→17:08)
[2017-11-26] MEDS: ASPIRIN 81 MG ENTERIC TAB PO (08:30)
[2017-11-26] MEDS: ATORVASTATIN 20 MG TAB PO (08:30)
[2017-11-26] MEDS: LEVEMIR (INSULIN DETEMIR) 1 UNITS/0.01ML SC (08:30)
[2017-11-26] MEDS: LOSARTAN 50 MG TAB PO (08:32)
[2017-11-26 09:17] LABS: BEDSIDE GLUCOSE 331 MG/DL (83-110)
[2017-11-26 09:17] LABS: BEDSIDE GLUCOSE 353 MG/DL (83-110)
[2017-11-26 11:40] LABS: BEDSIDE GLUCOSE 321 MG/DL (83-110)
[2017-11-26 17:26] LABS: BEDSIDE GLUCOSE 81 MG/DL (83-110)
== END 2017-11-26 18:16 | disposition home or self-care (01) | DRG 75 ==
LOC: M ED 21:01 → M PCU 11-22 15:18 → M ED INP 11-21 02:41 → M ICU 11-21 04:22
PROVIDERS: Hospitalist
PROC: 009U3ZX Drainage of Spinal Canal, Percutaneous Approach, Diagnostic (ICD-10-PCS; principal; 2017-11-21)
DX: A87.9 Viral meningitis, unspecified (principal); G93.41 Metabolic encephalopathy; E87.2 Acidosis; N17.9 Acute kidney failure, unspecified; E10.319 Type 1 diabetes mellitus with unspecified diabetic retinopathy without macular edema; I25.10 Atherosclerotic heart disease of native coronary artery without angina pectoris; H26.9 Unspecified cataract; N40.1 Benign prostatic hyperplasia with lower urinary tract symptoms; E78.5 Hyperlipidemia, unspecified; R91.8 Other nonspecific abnormal finding of lung field; E78.00 Pure hypercholesterolemia, unspecified; F03.90 Unspecified dementia, unspecified severity, without behavioral disturbance, psychotic disturbance, mood disturbance, and anxiety; E83.42 Hypomagnesemia; I12.9 Hypertensive chronic kidney disease with stage 1 through stage 4 chronic kidney disease, or unspecified chronic kidney disease; N18.3 Chronic kidney disease, stage 3 (moderate); E10.22 Type 1 diabetes mellitus with diabetic chronic kidney disease; R32 Unspecified urinary incontinence; Z95.1 Presence of aortocoronary bypass graft; Z96.611 Presence of right artificial shoulder joint; Z79.4 Long term (current) use of insulin; Z79.82 Long term (current) use of aspirin; Z79.899 Other long term (current) drug therapy

== ENCOUNTER 2017-12-14 23:58 | Inpatient (IN) | payer MEDICARE, MEDICAID ==
[2017-12-15 01:29] LABS: BASO % 0.2 % (0.0-1.0); EOS # 0.2 10^3/uL (0.0-0.50); EOS % 1.7 % (0.0-3.0); HEMATOCRIT 32.8 % (42.0-52.0); HEMOGLOBIN 10.7 g/dl (13.5-17.5); IMMATURE GRANULOCYTE % 0.4 % (0-3.0); LYMPH % 7.7 % (24.0-44.0); MEAN CORPUSCULAR HEMOGLOBIN 29.9 pg (27.0-33.0); MEAN CORPUSCULAR HGB CONC 32.6 g/dl (32.0-36.5); MEAN CORPUSCULAR VOLUME 91.6 fl (80.0-96.0); MONO # 0.9 10^3/uL (0.0-0.8); MONO % 6.6 % (0.0-5.0); NEUTROPHILS # 10.9 10^3/uL (1.8-7.7); NEUTROPHILS % 83.4 % (36.0-66.0); PLATELET COUNT, AUTOMATED 293 10^3/uL (150-450); RED BLOOD COUNT 3.58 10^6/uL (4.30-6.10); RED CELL DISTRIBUTION WIDTH 13.9 % (11.5-14.5); WHITE BLOOD COUNT 13.1 10^3/uL (4.0-10.0)
[2017-12-15 01:50] LABS: AMMONIA 23 uMOL/L (<32)
[2017-12-15 01:53] LABS: LACTIC ACID SEPSIS PROTOCOL 1.9 MMOL/L (0.4-2.0)
[2017-12-15 01:53] LABS: ABG HCO3 24.6 MEQ/L (22.0-26.0); ABG O2 SATURATION 96.9 % (95.0-99.0); ABG PARTIAL PRESSURE CO2 35.6 mmHg (35.0-45.0); ABG PARTIAL PRESSURE O2 85.8 mmHg (75.0-100.0); ABG STANDARD HCO3 25.3 MEQ/L (22.0-26.0); ABG TOTAL CO2 25.7 MEQ/L (23.0-31.0); ABG pH (ARTERIAL) 7.457 UNITS (7.350-7.450)
[2017-12-15 02:00] LABS: ALBUMIN/GLOBULIN RATIO 1.11 (1.00-1.93); ALKALINE PHOSPHATASE 133 U/L (45-117); ALT/SGPT 24 U/L (12-78); ANION GAP 8 MEQ/L (8-16); AST/SGOT 15 U/L (7-37); BILIRUBIN,DIRECT 0.2 MG/DL (0.0-0.2); BILIRUBIN,TOTAL 0.7 MG/DL (0.2-1.0); BLOOD UREA NITROGEN 27 MG/DL (7-18); CALCIUM LEVEL 9.4 MG/DL (8.8-10.2); CARBON DIOXIDE LEVEL 27 MEQ/L (21-32); CHLORIDE LEVEL 104 MEQ/L (98-107); CREATININE FOR GFR 1.29 MG/DL (0.70-1.30); ETHYL ALCOHOL (ETHANOL) < 0.003 % (0.000-0.010); FREE THYROXINE INDEX 3.6 % (1.4-3.8); GLOMERULAR FILTRATION RATE 56.6 (>35); GLUCOSE, FASTING 228 MG/DL (70-100); POTASSIUM SERUM 4.1 MEQ/L (3.5-5.1); SODIUM LEVEL 139 MEQ/L (136-145); T UPTAKE 32 % (33-40); THYROXINE (T4) 11.1 UG/DL (4.5-12.0); TOTAL PROTEIN 7.6 GM/DL (6.4-8.2)
[2017-12-15] MEDS ORDERED: ONDANSETRON 4MG/2ML VIAL (J2405) IV (02:30)
[2017-12-15] MEDS ORDERED: DEXTROSE 50% 50 ML SYRINGE IV (02:30)
[2017-12-15] MEDS ORDERED: GLUCOSE 4 GM CHEW TABLET PO (02:30)
[2017-12-15] MEDS ORDERED: GLUCAGON FOR INJ 1 MG VIAL (J1610) SC (02:30)
[2017-12-15] MEDS: VANCOMYCIN ORAL SOL 250MG/5ML ORAL SYRINGE PO ×4 (05:09→23:29)
[2017-12-15] MEDS: LOSARTAN 50 MG TAB PO (05:10)
[2017-12-15] MEDS: HEPARIN SOD (PORCINE) 5000 UNITS/ML VIAL SC ×3 (05:10→22:01)
[2017-12-15 07:07] LABS: HEMATOCRIT 35.1 % (42.0-52.0); HEMOGLOBIN 11.5 g/dl (13.5-17.5); MEAN CORPUSCULAR HEMOGLOBIN 29.3 pg (27.0-33.0); MEAN CORPUSCULAR HGB CONC 32.8 g/dl (32.0-36.5); MEAN CORPUSCULAR VOLUME 89.5 fl (80.0-96.0); PLATELET COUNT, AUTOMATED 288 10^3/uL (150-450); RED BLOOD COUNT 3.92 10^6/uL (4.30-6.10); RED CELL DISTRIBUTION WIDTH 13.8 % (11.5-14.5); WHITE BLOOD COUNT 12.8 10^3/uL (4.0-10.0)
[2017-12-15 07:18] LABS: ANION GAP 9 MEQ/L (8-16); BLOOD UREA NITROGEN 27 MG/DL (7-18); CALCIUM LEVEL 9.4 MG/DL (8.8-10.2); CARBON DIOXIDE LEVEL 23 MEQ/L (21-32); CHLORIDE LEVEL 103 MEQ/L (98-107); CREATININE FOR GFR 1.35 MG/DL (0.70-1.30); GLOMERULAR FILTRATION RATE 53.7 (>35); GLUCOSE, FASTING 379 MG/DL (70-100); POTASSIUM SERUM 4.8 MEQ/L (3.5-5.1); SODIUM LEVEL 135 MEQ/L (136-145)
[2017-12-15] MEDS: ATORVASTATIN 20 MG TAB PO (08:18)
[2017-12-15] MEDS: HumaLOG INSULIN (NovoLOG) PER UNIT SC ×4 (08:19→21:00)
[2017-12-15] MEDS: LEVEMIR (INSULIN DETEMIR) 1 UNITS/0.01ML SQ (09:00)
[2017-12-15] MEDS: ASPIRIN 81 MG ENTERIC TAB PO (09:00)
[2017-12-15] MEDS ORDERED: LOSARTAN 50 MG TAB PO (09:00)
[2017-12-15 11:54] LABS: BEDSIDE GLUCOSE 197 MG/DL (83-110)
[2017-12-15] MEDS: NS 1,000 ML IV (13:15)
[2017-12-15 13:47] LABS: APPEARANCE, URINE HAZY (CLEAR); BACTERIA, URINE AUTO NEGATIVE (NEGATIVE); BILIRUBIN, URINE AUTO NEGATIVE (NEGATIVE); BLOOD, URINE BLOOD 2+ (NEGATIVE); COLOR, URINE YELLOW (YELLOW); GLUCOSE, URINE (UA) AUTO 3+ mg/dL (NEGATIVE); KETONE, URINE AUTO 1+ mg/dL (NEGATIVE); LEUKOCYTE ESTERASE, URINE AUTO NEGATIVE (NEGATIVE); MUCUS, URINE SMALL (NEGATIVE); NITRITE, URINE AUTO NEGATIVE (NEGATIVE); PROTEIN, URINE AUTO 2+ mg/dL (NEGATIVE); RBC, URINE AUTO 7 /HPF (0-3); SPECIFIC GRAVITY URINE AUTO 1.018 (1.002-1.035); SQUAMOUS EPITHELIAL CELL UR AU 0 /HPF (0-6); UROBILINOGEN, URINE AUTO 0.2 mg/dL (0.0-2.0); WBC, URINE AUTO 3 /HPF (0-3)
[2017-12-15 17:12] LABS: BEDSIDE GLUCOSE 64 MG/DL (83-110)
[2017-12-15] MEDS: D5W/0.45% SODIUM CHLORIDE 1,000 ML IV ×2 (17:28→23:32)
[2017-12-15 20:53] LABS: BEDSIDE GLUCOSE 218 MG/DL (83-110)
[2017-12-16] MEDS: HEPARIN SOD (PORCINE) 5000 UNITS/ML VIAL SC ×3 (05:13→22:12)
[2017-12-16] MEDS: VANCOMYCIN ORAL SOL 250MG/5ML ORAL SYRINGE PO ×3 (05:13→17:57)
[2017-12-16 06:24] LABS: HEMATOCRIT 30.8 % (42.0-52.0); HEMOGLOBIN 10.1 g/dl (13.5-17.5); MEAN CORPUSCULAR HEMOGLOBIN 29.2 pg (27.0-33.0); MEAN CORPUSCULAR HGB CONC 32.8 g/dl (32.0-36.5); PLATELET COUNT, AUTOMATED 270 10^3/uL (150-450); RED BLOOD COUNT 3.46 10^6/uL (4.30-6.10); RED CELL DISTRIBUTION WIDTH 13.9 % (11.5-14.5); WHITE BLOOD COUNT 7.3 10^3/uL (4.0-10.0)
[2017-12-16 06:39] LABS: ANION GAP 6 MEQ/L (8-16); BLOOD UREA NITROGEN 29 MG/DL (7-18); CALCIUM LEVEL 8.2 MG/DL (8.8-10.2); CARBON DIOXIDE LEVEL 26 MEQ/L (21-32); CHLORIDE LEVEL 102 MEQ/L (98-107); CREATININE FOR GFR 1.42 MG/DL (0.70-1.30); GLOMERULAR FILTRATION RATE 50.7 (>35); GLUCOSE, FASTING 338 MG/DL (70-100); POTASSIUM SERUM 4.3 MEQ/L (3.5-5.1); SODIUM LEVEL 134 MEQ/L (136-145)
[2017-12-16] MEDS: ATORVASTATIN 20 MG TAB PO (08:58)
[2017-12-16] MEDS: HumaLOG INSULIN (NovoLOG) PER UNIT SC ×4 (08:58→22:12)
[2017-12-16] MEDS: ASPIRIN 81 MG ENTERIC TAB PO (08:58)
[2017-12-16] MEDS: LOSARTAN 50 MG TAB PO (08:59)
[2017-12-16 12:03] LABS: BEDSIDE GLUCOSE 148 MG/DL (83-110)
[2017-12-16 17:22] LABS: BEDSIDE GLUCOSE 153 MG/DL (83-110)
[2017-12-16 21:03] LABS: BEDSIDE GLUCOSE 302 MG/DL (83-110)
[2017-12-17] MEDS: VANCOMYCIN ORAL SOL 250MG/5ML ORAL SYRINGE PO ×5 (00:11→23:43)
[2017-12-17] MEDS: HEPARIN SOD (PORCINE) 5000 UNITS/ML VIAL SC ×3 (05:19→22:11)
[2017-12-17 06:43] LABS: HEMATOCRIT 32.4 % (42.0-52.0); HEMOGLOBIN 10.7 g/dl (13.5-17.5); MEAN CORPUSCULAR HEMOGLOBIN 29.6 pg (27.0-33.0); MEAN CORPUSCULAR VOLUME 89.8 fl (80.0-96.0); PLATELET COUNT, AUTOMATED 262 10^3/uL (150-450); RED BLOOD COUNT 3.61 10^6/uL (4.30-6.10); RED CELL DISTRIBUTION WIDTH 13.9 % (11.5-14.5); WHITE BLOOD COUNT 6.3 10^3/uL (4.0-10.0)
[2017-12-17 07:03] LABS: ANION GAP 7 MEQ/L (8-16); BLOOD UREA NITROGEN 29 MG/DL (7-18); CALCIUM LEVEL 8.4 MG/DL (8.8-10.2); CARBON DIOXIDE LEVEL 27 MEQ/L (21-32); CHLORIDE LEVEL 105 MEQ/L (98-107); CREATININE FOR GFR 1.35 MG/DL (0.70-1.30); GLOMERULAR FILTRATION RATE 53.7 (>35); GLUCOSE, FASTING 162 MG/DL (70-100); MAGNESIUM LEVEL 2.1 MG/DL (1.8-2.4); POTASSIUM SERUM 4.5 MEQ/L (3.5-5.1); SODIUM LEVEL 139 MEQ/L (136-145)
[2017-12-17] MEDS: ATORVASTATIN 20 MG TAB PO (08:09)
[2017-12-17] MEDS: ASPIRIN 81 MG ENTERIC TAB PO (08:09)
[2017-12-17] MEDS: HumaLOG INSULIN (NovoLOG) PER UNIT SC ×4 (08:09→21:00)
[2017-12-17] MEDS: LOSARTAN 50 MG TAB PO (08:10)
[2017-12-17 11:35] LABS: BEDSIDE GLUCOSE 389 MG/DL (83-110)
[2017-12-17] MEDS: LEVEMIR (INSULIN DETEMIR) 1 UNITS/0.01ML SC (12:04)
[2017-12-17 16:55] LABS: BEDSIDE GLUCOSE 340 MG/DL (83-110)
[2017-12-17 21:04] LABS: BEDSIDE GLUCOSE 84 MG/DL (83-110)
[2017-12-18] MEDS: HEPARIN SOD (PORCINE) 5000 UNITS/ML VIAL SC ×3 (06:04→20:42)
[2017-12-18] MEDS: VANCOMYCIN ORAL SOL 250MG/5ML ORAL SYRINGE PO ×3 (06:04→18:32)
[2017-12-18 06:36] LABS: HEMATOCRIT 32.7 % (42.0-52.0); HEMOGLOBIN 10.6 g/dl (13.5-17.5); MEAN CORPUSCULAR HEMOGLOBIN 29.3 pg (27.0-33.0); MEAN CORPUSCULAR HGB CONC 32.4 g/dl (32.0-36.5); MEAN CORPUSCULAR VOLUME 90.3 fl (80.0-96.0); PLATELET COUNT, AUTOMATED 244 10^3/uL (150-450); RED BLOOD COUNT 3.62 10^6/uL (4.30-6.10); RED CELL DISTRIBUTION WIDTH 13.9 % (11.5-14.5); WHITE BLOOD COUNT 5.9 10^3/uL (4.0-10.0)
[2017-12-18 06:56] LABS: ANION GAP 6 MEQ/L (8-16); BLOOD UREA NITROGEN 32 MG/DL (7-18); CALCIUM LEVEL 8.3 MG/DL (8.8-10.2); CARBON DIOXIDE LEVEL 28 MEQ/L (21-32); CHLORIDE LEVEL 105 MEQ/L (98-107); CREATININE FOR GFR 1.35 MG/DL (0.70-1.30); GLOMERULAR FILTRATION RATE 53.7 (>35); GLUCOSE, FASTING 172 MG/DL (70-100); MAGNESIUM LEVEL 2.2 MG/DL (1.8-2.4); POTASSIUM SERUM 4.6 MEQ/L (3.5-5.1); SODIUM LEVEL 139 MEQ/L (136-145)
[2017-12-18] MEDS: ATORVASTATIN 20 MG TAB PO (08:30)
[2017-12-18] MEDS: ASPIRIN 81 MG ENTERIC TAB PO (08:30)
[2017-12-18] MEDS: LEVEMIR (INSULIN DETEMIR) 1 UNITS/0.01ML SC (08:31)
[2017-12-18] MEDS: HumaLOG INSULIN (NovoLOG) PER UNIT SC ×4 (08:31→20:41)
[2017-12-18] MEDS: LOSARTAN 50 MG TAB PO (08:31)
[2017-12-18 13:00] LABS: BEDSIDE GLUCOSE 324 MG/DL (83-110)
[2017-12-18 17:40] LABS: BEDSIDE GLUCOSE 233 MG/DL (83-110)
[2017-12-18 21:22] LABS: BEDSIDE GLUCOSE 180 MG/DL (83-110)
[2017-12-19] MEDS: VANCOMYCIN ORAL SOL 250MG/5ML ORAL SYRINGE PO ×5 (00:02→23:35)
[2017-12-19] MEDS: HEPARIN SOD (PORCINE) 5000 UNITS/ML VIAL SC ×3 (05:25→21:10)
[2017-12-19 06:02] LABS: HEMATOCRIT 31.3 % (42.0-52.0); HEMOGLOBIN 10.3 g/dl (13.5-17.5); MEAN CORPUSCULAR HEMOGLOBIN 29.4 pg (27.0-33.0); MEAN CORPUSCULAR HGB CONC 32.9 g/dl (32.0-36.5); MEAN CORPUSCULAR VOLUME 89.4 fl (80.0-96.0); PLATELET COUNT, AUTOMATED 234 10^3/uL (150-450); RED CELL DISTRIBUTION WIDTH 13.8 % (11.5-14.5); WHITE BLOOD COUNT 5.6 10^3/uL (4.0-10.0)
[2017-12-19 06:29] LABS: ANION GAP 6 MEQ/L (8-16); BLOOD UREA NITROGEN 27 MG/DL (7-18); CALCIUM LEVEL 8.6 MG/DL (8.8-10.2); CARBON DIOXIDE LEVEL 28 MEQ/L (21-32); CHLORIDE LEVEL 105 MEQ/L (98-107); CREATININE FOR GFR 1.24 MG/DL (0.70-1.30); GLOMERULAR FILTRATION RATE 59.3 (>35); GLUCOSE, FASTING 211 MG/DL (70-100); MAGNESIUM LEVEL 2.1 MG/DL (1.8-2.4); POTASSIUM SERUM 4.3 MEQ/L (3.5-5.1); SODIUM LEVEL 139 MEQ/L (136-145)
[2017-12-19] MEDS: ATORVASTATIN 20 MG TAB PO (08:13)
[2017-12-19] MEDS: ASPIRIN 81 MG ENTERIC TAB PO (08:13)
[2017-12-19] MEDS: HumaLOG INSULIN (NovoLOG) PER UNIT SC ×5 (08:14→21:00)
[2017-12-19] MEDS: LOSARTAN 50 MG TAB PO (08:14)
[2017-12-19] MEDS: LEVEMIR (INSULIN DETEMIR) 1 UNITS/0.01ML SC (08:15)
[2017-12-19 13:41] LABS: BEDSIDE GLUCOSE 490 MG/DL (83-110)
[2017-12-19 13:41] LABS: BEDSIDE GLUCOSE 514 MG/DL (83-110)
[2017-12-19 16:30] LABS: BEDSIDE GLUCOSE 152 MG/DL (83-110)
[2017-12-19 20:32] LABS: BEDSIDE GLUCOSE 89 MG/DL (83-110)
[2017-12-20] MEDS: VANCOMYCIN ORAL SOL 250MG/5ML ORAL SYRINGE PO ×4 (05:08→23:02)
[2017-12-20 06:41] LABS: BEDSIDE GLUCOSE 192 MG/DL (83-110)
[2017-12-20] MEDS: HEPARIN SOD (PORCINE) 5000 UNITS/ML VIAL SC ×3 (09:09→23:02)
[2017-12-20] MEDS: ASPIRIN 81 MG ENTERIC TAB PO (09:09)
[2017-12-20] MEDS: ATORVASTATIN 20 MG TAB PO (09:10)
[2017-12-20] MEDS: LOSARTAN 50 MG TAB PO (09:10)
[2017-12-20] MEDS: HumaLOG INSULIN (NovoLOG) PER UNIT SC ×4 (09:10→21:00)
[2017-12-20] MEDS: LEVEMIR (INSULIN DETEMIR) 1 UNITS/0.01ML SC (09:11)
[2017-12-20 11:57] LABS: BEDSIDE GLUCOSE 386 MG/DL (83-110)
[2017-12-20] MEDS: ACETAMINOPHEN TAB 650MG DOSE (2X325MG) PO ×2 (15:10→19:40)
[2017-12-20 16:36] LABS: BEDSIDE GLUCOSE 71 MG/DL (83-110)
[2017-12-20 20:15] LABS: BEDSIDE GLUCOSE 191 MG/DL (83-110)
[2017-12-21] MEDS: HEPARIN SOD (PORCINE) 5000 UNITS/ML VIAL SC ×3 (05:19→21:21)
[2017-12-21] MEDS: VANCOMYCIN ORAL SOL 250MG/5ML ORAL SYRINGE PO ×4 (05:19→23:57)
[2017-12-21 05:58] LABS: HEMATOCRIT 33.2 % (42.0-52.0); HEMOGLOBIN 10.8 g/dl (13.5-17.5); MEAN CORPUSCULAR HEMOGLOBIN 29.7 pg (27.0-33.0); MEAN CORPUSCULAR HGB CONC 32.5 g/dl (32.0-36.5); MEAN CORPUSCULAR VOLUME 91.2 fl (80.0-96.0); PLATELET COUNT, AUTOMATED 252 10^3/uL (150-450); RED BLOOD COUNT 3.64 10^6/uL (4.30-6.10); RED CELL DISTRIBUTION WIDTH 14.2 % (11.5-14.5); WHITE BLOOD COUNT 5.3 10^3/uL (4.0-10.0)
[2017-12-21 07:20] LABS: BEDSIDE GLUCOSE 231 MG/DL (83-110)
[2017-12-21] MEDS: ASPIRIN 81 MG ENTERIC TAB PO (07:52)
[2017-12-21] MEDS: LOSARTAN 50 MG TAB PO (07:52)
[2017-12-21] MEDS: ATORVASTATIN 20 MG TAB PO (07:52)
[2017-12-21] MEDS: HumaLOG INSULIN (NovoLOG) PER UNIT SC ×4 (07:53→21:20)
[2017-12-21] MEDS: LEVEMIR (INSULIN DETEMIR) 1 UNITS/0.01ML SC (07:53)
[2017-12-21 08:18] LABS: ANION GAP 6 MEQ/L (8-16); BLOOD UREA NITROGEN 28 MG/DL (7-18); CALCIUM LEVEL 8.4 MG/DL (8.8-10.2); CARBON DIOXIDE LEVEL 28 MEQ/L (21-32); CHLORIDE LEVEL 104 MEQ/L (98-107); CREATININE FOR GFR 1.52 MG/DL (0.70-1.30); GLOMERULAR FILTRATION RATE 46.9 (>35); GLUCOSE, FASTING 206 MG/DL (70-100); MAGNESIUM LEVEL 2.2 MG/DL (1.8-2.4); POTASSIUM SERUM 4.6 MEQ/L (3.5-5.1); SODIUM LEVEL 138 MEQ/L (136-145)
[2017-12-21 12:03] LABS: BEDSIDE GLUCOSE 268 MG/DL (83-110)
[2017-12-21] MEDS: ACETAMINOPHEN TAB 650MG DOSE (2X325MG) PO (16:45)
[2017-12-21 17:02] LABS: BEDSIDE GLUCOSE 45 MG/DL (83-110)
[2017-12-21 17:05] LABS: BEDSIDE GLUCOSE 77 MG/DL (83-110)
[2017-12-21 20:27] LABS: BEDSIDE GLUCOSE 214 MG/DL (83-110)
[2017-12-22] MEDS: HEPARIN SOD (PORCINE) 5000 UNITS/ML VIAL SC ×3 (05:27→20:29)
[2017-12-22] MEDS: VANCOMYCIN ORAL SOL 250MG/5ML ORAL SYRINGE PO ×4 (05:28→23:54)
[2017-12-22 06:19] LABS: BEDSIDE GLUCOSE 182 MG/DL (83-110)
[2017-12-22] MEDS: ASPIRIN 81 MG ENTERIC TAB PO (07:48)
[2017-12-22] MEDS: ATORVASTATIN 20 MG TAB PO (07:48)
[2017-12-22] MEDS: LOSARTAN 50 MG TAB PO (07:49)
[2017-12-22] MEDS: HumaLOG INSULIN (NovoLOG) PER UNIT SC ×4 (07:49→20:30)
[2017-12-22] MEDS: LEVEMIR (INSULIN DETEMIR) 1 UNITS/0.01ML SC (07:50)
[2017-12-22 11:43] LABS: BEDSIDE GLUCOSE 310 MG/DL (83-110)
[2017-12-22 17:07] LABS: BEDSIDE GLUCOSE 87 MG/DL (83-110)
[2017-12-22 21:13] LABS: BEDSIDE GLUCOSE 89 MG/DL (83-110)
[2017-12-23] MEDS: VANCOMYCIN ORAL SOL 250MG/5ML ORAL SYRINGE PO ×4 (05:38→23:44)
[2017-12-23] MEDS: HEPARIN SOD (PORCINE) 5000 UNITS/ML VIAL SC ×3 (05:38→21:43)
[2017-12-23] MEDS: HumaLOG INSULIN (NovoLOG) PER UNIT SC ×4 (08:00→21:42)
[2017-12-23 08:39] LABS: BEDSIDE GLUCOSE 90 MG/DL (83-110)
[2017-12-23 08:39] LABS: BEDSIDE GLUCOSE 108 MG/DL (83-110)
[2017-12-23] MEDS: ATORVASTATIN 20 MG TAB PO (11:03)
[2017-12-23] MEDS: ASPIRIN 81 MG ENTERIC TAB PO (11:03)
[2017-12-23] MEDS: LEVEMIR (INSULIN DETEMIR) 1 UNITS/0.01ML SC ×2 (11:04→21:43)
[2017-12-23] MEDS: LOSARTAN 50 MG TAB PO (11:04)
[2017-12-23 11:59] LABS: BEDSIDE GLUCOSE 462 MG/DL (83-110)
[2017-12-23 17:22] LABS: BEDSIDE GLUCOSE 148 MG/DL (83-110)
[2017-12-23 21:49] LABS: BEDSIDE GLUCOSE 86 MG/DL (83-110)
[2017-12-24] MEDS: VANCOMYCIN ORAL SOL 250MG/5ML ORAL SYRINGE PO ×4 (05:42→23:08)
[2017-12-24] MEDS: HEPARIN SOD (PORCINE) 5000 UNITS/ML VIAL SC ×3 (05:42→21:35)
[2017-12-24 06:22] LABS: HEMOGLOBIN 10.9 g/dl (13.5-17.5); MEAN CORPUSCULAR HEMOGLOBIN 29.5 pg (27.0-33.0); MEAN CORPUSCULAR HGB CONC 32.1 g/dl (32.0-36.5); MEAN CORPUSCULAR VOLUME 92.1 fl (80.0-96.0); PLATELET COUNT, AUTOMATED 266 10^3/uL (150-450); RED BLOOD COUNT 3.69 10^6/uL (4.30-6.10); RED CELL DISTRIBUTION WIDTH 14.5 % (11.5-14.5); WHITE BLOOD COUNT 6.7 10^3/uL (4.0-10.0)
[2017-12-24 06:41] LABS: ANION GAP 6 MEQ/L (8-16); BLOOD UREA NITROGEN 29 MG/DL (7-18); CALCIUM LEVEL 8.5 MG/DL (8.8-10.2); CARBON DIOXIDE LEVEL 28 MEQ/L (21-32); CHLORIDE LEVEL 107 MEQ/L (98-107); CREATININE FOR GFR 1.32 MG/DL (0.70-1.30); GLOMERULAR FILTRATION RATE 55.1 (>35); GLUCOSE, FASTING 48 MG/DL (70-100); MAGNESIUM LEVEL 2.2 MG/DL (1.8-2.4); POTASSIUM SERUM 4.3 MEQ/L (3.5-5.1); SODIUM LEVEL 141 MEQ/L (136-145)
[2017-12-24] MEDS: HumaLOG INSULIN (NovoLOG) PER UNIT SC ×4 (08:30→21:00)
[2017-12-24] MEDS: ASPIRIN 81 MG ENTERIC TAB PO (08:56)
[2017-12-24] MEDS: ATORVASTATIN 20 MG TAB PO (08:57)
[2017-12-24] MEDS: LEVEMIR (INSULIN DETEMIR) 1 UNITS/0.01ML SC ×2 (08:58→21:34)
[2017-12-24] MEDS: LOSARTAN 50 MG TAB PO (09:00)
[2017-12-24 11:54] LABS: BEDSIDE GLUCOSE 408 MG/DL (83-110)
[2017-12-24 13:50] LABS: BEDSIDE GLUCOSE 294 MG/DL (83-110)
[2017-12-24 16:52] LABS: BEDSIDE GLUCOSE 266 MG/DL (83-110)
[2017-12-24 20:53] LABS: BEDSIDE GLUCOSE 106 MG/DL (83-110)
[2017-12-25] MEDS: VANCOMYCIN ORAL SOL 250MG/5ML ORAL SYRINGE PO ×3 (05:05→18:04)
[2017-12-25] MEDS: HEPARIN SOD (PORCINE) 5000 UNITS/ML VIAL SC ×3 (05:05→22:31)
[2017-12-25] MEDS: HumaLOG INSULIN (NovoLOG) PER UNIT SC ×4 (07:17→21:00)
[2017-12-25 07:23] LABS: BEDSIDE GLUCOSE 64 MG/DL (83-110)
[2017-12-25] MEDS: ATORVASTATIN 20 MG TAB PO (08:53)
[2017-12-25] MEDS: ASPIRIN 81 MG ENTERIC TAB PO (08:53)
[2017-12-25] MEDS: LOSARTAN 50 MG TAB PO (08:54)
[2017-12-25] MEDS: LEVEMIR (INSULIN DETEMIR) 1 UNITS/0.01ML SC ×2 (08:54→22:30)
[2017-12-25 11:45] LABS: BEDSIDE GLUCOSE 212 MG/DL (83-110)
[2017-12-25 16:45] LABS: BEDSIDE GLUCOSE 224 MG/DL (83-110)
[2017-12-25 20:39] LABS: BEDSIDE GLUCOSE 137 MG/DL (83-110)
[2017-12-26] MEDS: VANCOMYCIN ORAL SOL 250MG/5ML ORAL SYRINGE PO ×4 (00:49→17:49)
[2017-12-26 01:51] LABS: BEDSIDE GLUCOSE 229 MG/DL (83-110)
[2017-12-26] MEDS: HEPARIN SOD (PORCINE) 5000 UNITS/ML VIAL SC ×3 (06:15→21:14)
[2017-12-26 06:37] LABS: BEDSIDE GLUCOSE 117 MG/DL (83-110)
[2017-12-26] MEDS: ASPIRIN 81 MG ENTERIC TAB PO (08:18)
[2017-12-26] MEDS: ATORVASTATIN 20 MG TAB PO (08:18)
[2017-12-26] MEDS: LEVEMIR (INSULIN DETEMIR) 1 UNITS/0.01ML SC ×2 (08:19→21:15)
[2017-12-26] MEDS: HumaLOG INSULIN (NovoLOG) PER UNIT SC ×4 (08:19→21:15)
[2017-12-26] MEDS: LOSARTAN 50 MG TAB PO (08:21)
[2017-12-26 11:58] LABS: BEDSIDE GLUCOSE 244 MG/DL (83-110)
[2017-12-26 16:42] LABS: BEDSIDE GLUCOSE 71 MG/DL (83-110)
[2017-12-27] MEDS: VANCOMYCIN ORAL SOL 250MG/5ML ORAL SYRINGE PO ×2 (00:05→05:35)
[2017-12-27] MEDS: HEPARIN SOD (PORCINE) 5000 UNITS/ML VIAL SC ×3 (05:35→21:12)
[2017-12-27] MEDS: HumaLOG INSULIN (NovoLOG) PER UNIT SC ×4 (07:30→21:00)
[2017-12-27] MEDS: ATORVASTATIN 20 MG TAB PO (08:19)
[2017-12-27] MEDS: LEVEMIR (INSULIN DETEMIR) 1 UNITS/0.01ML SC ×2 (08:19→21:12)
[2017-12-27] MEDS: ASPIRIN 81 MG ENTERIC TAB PO (08:19)
[2017-12-27] MEDS: LOSARTAN 50 MG TAB PO (08:20)
[2017-12-27 09:35] LABS: BEDSIDE GLUCOSE 72 MG/DL (83-110)
[2017-12-27 09:35] LABS: BEDSIDE GLUCOSE 319 MG/DL (83-110)
[2017-12-27 11:39] LABS: BEDSIDE GLUCOSE 340 MG/DL (83-110)
[2017-12-27] MEDS: ACETAMINOPHEN TAB 650MG DOSE (2X325MG) PO (19:24)
[2017-12-27 21:21] LABS: BEDSIDE GLUCOSE 106 MG/DL (83-110)
[2017-12-28] MEDS: HEPARIN SOD (PORCINE) 5000 UNITS/ML VIAL SC ×3 (05:21→21:13)
[2017-12-28 06:18] LABS: HEMOGLOBIN 10.7 g/dl (13.5-17.5); MEAN CORPUSCULAR HEMOGLOBIN 30.2 pg (27.0-33.0); MEAN CORPUSCULAR HGB CONC 32.4 g/dl (32.0-36.5); MEAN CORPUSCULAR VOLUME 93.2 fl (80.0-96.0); PLATELET COUNT, AUTOMATED 257 10^3/uL (150-450); RED BLOOD COUNT 3.54 10^6/uL (4.30-6.10); RED CELL DISTRIBUTION WIDTH 14.6 % (11.5-14.5); WHITE BLOOD COUNT 5.9 10^3/uL (4.0-10.0)
[2017-12-28 06:34] LABS: ANION GAP 4 MEQ/L (8-16); BLOOD UREA NITROGEN 25 MG/DL (7-18); CALCIUM LEVEL 8.4 MG/DL (8.8-10.2); CARBON DIOXIDE LEVEL 28 MEQ/L (21-32); CHLORIDE LEVEL 109 MEQ/L (98-107); CREATININE FOR GFR 1.38 MG/DL (0.70-1.30); GLOMERULAR FILTRATION RATE 52.4 (>35); GLUCOSE, FASTING 129 MG/DL (70-100); MAGNESIUM LEVEL 2.1 MG/DL (1.8-2.4); POTASSIUM SERUM 4.3 MEQ/L (3.5-5.1); SODIUM LEVEL 141 MEQ/L (136-145)
[2017-12-28 08:04] LABS: BEDSIDE GLUCOSE 238 MG/DL (83-110)
[2017-12-28] MEDS: HumaLOG INSULIN (NovoLOG) PER UNIT SC ×4 (08:50→21:12)
[2017-12-28] MEDS: LOSARTAN 50 MG TAB PO (08:50)
[2017-12-28] MEDS: ASPIRIN 81 MG ENTERIC TAB PO (08:50)
[2017-12-28] MEDS: ATORVASTATIN 20 MG TAB PO (08:50)
[2017-12-28] MEDS: LEVEMIR (INSULIN DETEMIR) 1 UNITS/0.01ML SC ×2 (08:51→21:12)
[2017-12-28 12:48] LABS: BEDSIDE GLUCOSE 381 MG/DL (83-110)
[2017-12-28 17:17] LABS: BEDSIDE GLUCOSE 142 MG/DL (83-110)
[2017-12-28 20:49] LABS: BEDSIDE GLUCOSE 342 MG/DL (83-110)
[2017-12-28] MEDS: ACETAMINOPHEN TAB 650MG DOSE (2X325MG) PO (21:13)
[2017-12-29] MEDS: HEPARIN SOD (PORCINE) 5000 UNITS/ML VIAL SC ×3 (05:12→22:18)
[2017-12-29 06:51] LABS: BEDSIDE GLUCOSE 88 MG/DL (83-110)
[2017-12-29] MEDS: HumaLOG INSULIN (NovoLOG) PER UNIT SC ×4 (07:30→22:19)
[2017-12-29] MEDS: ATORVASTATIN 20 MG TAB PO (08:40)
[2017-12-29] MEDS: LOSARTAN 50 MG TAB PO (08:40)
[2017-12-29] MEDS: ASPIRIN 81 MG ENTERIC TAB PO (08:40)
[2017-12-29] MEDS: LEVEMIR (INSULIN DETEMIR) 1 UNITS/0.01ML SC ×2 (08:41→22:18)
[2017-12-29 12:14] LABS: BEDSIDE GLUCOSE 304 MG/DL (83-110)
[2017-12-29 16:50] LABS: BEDSIDE GLUCOSE 116 MG/DL (83-110)
[2017-12-29] MEDS: ACETAMINOPHEN TAB 650MG DOSE (2X325MG) PO (19:52)
[2017-12-29 20:56] LABS: BEDSIDE GLUCOSE 320 MG/DL (83-110)
[2017-12-30] MEDS: HEPARIN SOD (PORCINE) 5000 UNITS/ML VIAL SC ×3 (05:41→22:54)
[2017-12-30] MEDS: HumaLOG INSULIN (NovoLOG) PER UNIT SC ×4 (07:30→21:00)
[2017-12-30 07:57] LABS: BEDSIDE GLUCOSE 73 MG/DL (83-110)
[2017-12-30] MEDS: ATORVASTATIN 20 MG TAB PO (08:53)
[2017-12-30] MEDS: amLODIPine 10 MG TAB PO (08:53)
[2017-12-30] MEDS: ASPIRIN 81 MG ENTERIC TAB PO (08:53)
[2017-12-30] MEDS: LEVEMIR (INSULIN DETEMIR) 1 UNITS/0.01ML SC ×3 (08:54→22:54)
[2017-12-30 11:55] LABS: BEDSIDE GLUCOSE 257 MG/DL (83-110)
[2017-12-30 16:53] LABS: BEDSIDE GLUCOSE 144 MG/DL (83-110)
[2017-12-30] MEDS: TUBERCULIN PPD 5 UNITS/0.1 ML ID (17:13)
[2017-12-30] MEDS: ACETAMINOPHEN TAB 650MG DOSE (2X325MG) PO (18:35)
[2017-12-30 22:23] LABS: BEDSIDE GLUCOSE 195 MG/DL (83-110)
[2017-12-31 05:54] LABS: HEMATOCRIT 33.4 % (42.0-52.0); HEMOGLOBIN 10.8 g/dl (13.5-17.5); MEAN CORPUSCULAR HEMOGLOBIN 29.8 pg (27.0-33.0); MEAN CORPUSCULAR HGB CONC 32.3 g/dl (32.0-36.5); MEAN CORPUSCULAR VOLUME 92.3 fl (80.0-96.0); PLATELET COUNT, AUTOMATED 269 10^3/uL (150-450); RED BLOOD COUNT 3.62 10^6/uL (4.30-6.10); RED CELL DISTRIBUTION WIDTH 14.6 % (11.5-14.5); WHITE BLOOD COUNT 5.8 10^3/uL (4.0-10.0)
[2017-12-31 06:08] LABS: ANION GAP 5 MEQ/L (8-16); BLOOD UREA NITROGEN 26 MG/DL (7-18); CALCIUM LEVEL 8.3 MG/DL (8.8-10.2); CARBON DIOXIDE LEVEL 27 MEQ/L (21-32); CHLORIDE LEVEL 109 MEQ/L (98-107); CREATININE FOR GFR 1.28 MG/DL (0.70-1.30); GLOMERULAR FILTRATION RATE 57.1 (>35); GLUCOSE, FASTING 130 MG/DL (70-100); MAGNESIUM LEVEL 2.2 MG/DL (1.8-2.4); POTASSIUM SERUM 4.5 MEQ/L (3.5-5.1); SODIUM LEVEL 141 MEQ/L (136-145)
[2017-12-31] MEDS: HEPARIN SOD (PORCINE) 5000 UNITS/ML VIAL SC ×3 (06:25→21:19)
[2017-12-31] MEDS: HumaLOG INSULIN (NovoLOG) PER UNIT SC ×4 (08:49→21:00)
[2017-12-31] MEDS: ATORVASTATIN 20 MG TAB PO (08:50)
[2017-12-31] MEDS: LEVEMIR (INSULIN DETEMIR) 1 UNITS/0.01ML SC ×2 (08:50→21:19)
[2017-12-31] MEDS: ASPIRIN 81 MG ENTERIC TAB PO (08:50)
[2017-12-31] MEDS: amLODIPine 10 MG TAB PO (08:51)
[2017-12-31 12:53] LABS: BEDSIDE GLUCOSE 202 MG/DL (83-110)
[2017-12-31 16:58] LABS: BEDSIDE GLUCOSE 155 MG/DL (83-110)
[2018-01-01] MEDS: HEPARIN SOD (PORCINE) 5000 UNITS/ML VIAL SC ×3 (07:05→21:29)
[2018-01-01] MEDS: ATORVASTATIN 20 MG TAB PO (08:02)
[2018-01-01] MEDS: amLODIPine 10 MG TAB PO (08:02)
[2018-01-01] MEDS: ASPIRIN 81 MG ENTERIC TAB PO (08:02)
[2018-01-01] MEDS: LEVEMIR (INSULIN DETEMIR) 1 UNITS/0.01ML SC ×2 (08:03→21:00)
[2018-01-01] MEDS: HumaLOG INSULIN (NovoLOG) PER UNIT SC ×4 (08:03→21:00)
[2018-01-01 10:53] LABS: BEDSIDE GLUCOSE 204 MG/DL (83-110)
[2018-01-01 12:30] LABS: BEDSIDE GLUCOSE 193 MG/DL (83-110)
[2018-01-01 12:43] LABS: BEDSIDE GLUCOSE 196 MG/DL (83-110)
[2018-01-01] MEDS: PPD DOCUMENTATION ENTRY MISC XX (16:22)
[2018-01-01 16:52] LABS: BEDSIDE GLUCOSE 203 MG/DL (83-110)
[2018-01-01 20:25] LABS: BEDSIDE GLUCOSE 98 MG/DL (83-110)
[2018-01-02] MEDS: HEPARIN SOD (PORCINE) 5000 UNITS/ML VIAL SC ×3 (06:00→21:35)
[2018-01-02] MEDS: HumaLOG INSULIN (NovoLOG) PER UNIT SC ×4 (07:50→20:18)
[2018-01-02] MEDS: ASPIRIN 81 MG ENTERIC TAB PO (07:51)
[2018-01-02] MEDS: LEVEMIR (INSULIN DETEMIR) 1 UNITS/0.01ML SC ×2 (07:51→20:16)
[2018-01-02] MEDS: ATORVASTATIN 20 MG TAB PO (07:51)
[2018-01-02] MEDS: amLODIPine 10 MG TAB PO (07:53)
[2018-01-02 11:58] LABS: BEDSIDE GLUCOSE 167 MG/DL (83-110)
[2018-01-02 17:13] LABS: BEDSIDE GLUCOSE 133 MG/DL (83-110)
[2018-01-02 20:26] LABS: BEDSIDE GLUCOSE 90 MG/DL (83-110)
[2018-01-03] MEDS: HEPARIN SOD (PORCINE) 5000 UNITS/ML VIAL SC ×3 (06:02→21:33)
[2018-01-03] MEDS: ASPIRIN 81 MG ENTERIC TAB PO (08:53)
[2018-01-03] MEDS: ATORVASTATIN 20 MG TAB PO (08:53)
[2018-01-03] MEDS: amLODIPine 10 MG TAB PO (08:53)
[2018-01-03] MEDS: LEVEMIR (INSULIN DETEMIR) 1 UNITS/0.01ML SC ×2 (08:54→21:34)
[2018-01-03] MEDS: HumaLOG INSULIN (NovoLOG) PER UNIT SC ×4 (08:54→21:00)
[2018-01-03 09:59] LABS: BEDSIDE GLUCOSE 238 MG/DL (83-110)
[2018-01-03 10:53] LABS: BEDSIDE GLUCOSE 128 MG/DL (83-110)
[2018-01-03 13:00] LABS: BEDSIDE GLUCOSE 205 MG/DL (83-110)
[2018-01-03 19:03] LABS: BEDSIDE GLUCOSE 65 MG/DL (83-110)
[2018-01-03 19:03] LABS: BEDSIDE GLUCOSE 123 MG/DL (83-110)
[2018-01-04] MEDS: HEPARIN SOD (PORCINE) 5000 UNITS/ML VIAL SC ×3 (05:20→21:40)
[2018-01-04 05:35] LABS: HEMATOCRIT 33.2 % (42.0-52.0); HEMOGLOBIN 10.8 g/dl (13.5-17.5); MEAN CORPUSCULAR HEMOGLOBIN 29.7 pg (27.0-33.0); MEAN CORPUSCULAR HGB CONC 32.5 g/dl (32.0-36.5); MEAN CORPUSCULAR VOLUME 91.2 fl (80.0-96.0); PLATELET COUNT, AUTOMATED 234 10^3/uL (150-450); RED BLOOD COUNT 3.64 10^6/uL (4.30-6.10); RED CELL DISTRIBUTION WIDTH 14.4 % (11.5-14.5); WHITE BLOOD COUNT 6.4 10^3/uL (4.0-10.0)
[2018-01-04 05:49] LABS: ANION GAP 5 MEQ/L (8-16); BLOOD UREA NITROGEN 32 MG/DL (7-18); CALCIUM LEVEL 8.6 MG/DL (8.8-10.2); CARBON DIOXIDE LEVEL 26 MEQ/L (21-32); CHLORIDE LEVEL 109 MEQ/L (98-107); CREATININE FOR GFR 1.29 MG/DL (0.70-1.30); GLOMERULAR FILTRATION RATE 56.6 (>35); GLUCOSE, FASTING 121 MG/DL (70-100); MAGNESIUM LEVEL 2.1 MG/DL (1.8-2.4); POTASSIUM SERUM 4.2 MEQ/L (3.5-5.1); SODIUM LEVEL 140 MEQ/L (136-145)
[2018-01-04] MEDS: amLODIPine 10 MG TAB PO (08:48)
[2018-01-04] MEDS: ASPIRIN 81 MG ENTERIC TAB PO (08:48)
[2018-01-04] MEDS: ATORVASTATIN 20 MG TAB PO (08:48)
[2018-01-04] MEDS: HumaLOG INSULIN (NovoLOG) PER UNIT SC ×4 (08:49→21:41)
[2018-01-04] MEDS: LEVEMIR (INSULIN DETEMIR) 1 UNITS/0.01ML SC (08:50)
[2018-01-04 12:50] LABS: BEDSIDE GLUCOSE 280 MG/DL (83-110)
[2018-01-04 16:43] LABS: BEDSIDE GLUCOSE 193 MG/DL (83-110)
[2018-01-04 21:04] LABS: BEDSIDE GLUCOSE 339 MG/DL (83-110)
[2018-01-05] MEDS: HEPARIN SOD (PORCINE) 5000 UNITS/ML VIAL SC (05:36)
[2018-01-05 06:39] LABS: BEDSIDE GLUCOSE 203 MG/DL (83-110)
[2018-01-05 07:55] LABS: BEDSIDE GLUCOSE 207 MG/DL (83-110)
[2018-01-05] MEDS: LEVEMIR (INSULIN DETEMIR) 1 UNITS/0.01ML SC (09:12)
[2018-01-05] MEDS: HumaLOG INSULIN (NovoLOG) PER UNIT SC (09:13)
[2018-01-05] MEDS: ATORVASTATIN 20 MG TAB PO (09:13)
[2018-01-05] MEDS: ASPIRIN 81 MG ENTERIC TAB PO (09:13)
[2018-01-05] MEDS: amLODIPine 10 MG TAB PO (09:15)
== END 2018-01-05 11:01 | DRG 884 ==
LOC: M MSPAV 12-16 15:35 → M ED 23:58 → M MSPAV 12-17 17:22 → M ED INP 23:59 → M MSPAV 12-15 03:01
DX: F03.90 Unspecified dementia, unspecified severity, without behavioral disturbance, psychotic disturbance, mood disturbance, and anxiety (principal); A04.72 Enterocolitis due to Clostridium difficile, not specified as recurrent; N18.3 Chronic kidney disease, stage 3 (moderate); I12.9 Hypertensive chronic kidney disease with stage 1 through stage 4 chronic kidney disease, or unspecified chronic kidney disease; E10.319 Type 1 diabetes mellitus with unspecified diabetic retinopathy without macular edema; N40.0 Benign prostatic hyperplasia without lower urinary tract symptoms; I25.10 Atherosclerotic heart disease of native coronary artery without angina pectoris; E78.00 Pure hypercholesterolemia, unspecified; D72.829 Elevated white blood cell count, unspecified; D64.9 Anemia, unspecified; Z79.82 Long term (current) use of aspirin; Z79.899 Other long term (current) drug therapy; Z79.4 Long term (current) use of insulin

== ENCOUNTER → 2018-03-09 | Outpatient (REF) | payer MEDICARE, MEDICAID ==
[2018-03-09 10:43] LABS: HEMATOCRIT 38.1 % (42.0-52.0); HEMOGLOBIN 12.4 g/dl (13.5-17.5); MEAN CORPUSCULAR HEMOGLOBIN 29.2 pg (27.0-33.0); MEAN CORPUSCULAR HGB CONC 32.5 g/dl (32.0-36.5); MEAN CORPUSCULAR VOLUME 89.6 fl (80.0-96.0); PLATELET COUNT, AUTOMATED 270 10^3/uL (150-450); RED BLOOD COUNT 4.25 10^6/uL (4.30-6.10); WHITE BLOOD COUNT 7.5 10^3/uL (4.0-10.0)
[2018-03-09 11:22] LABS: ALBUMIN/GLOBULIN RATIO 1.11 (1.00-1.93); ALKALINE PHOSPHATASE 103 U/L (45-117); ALT/SGPT 19 U/L (12-78); ANION GAP 9 MEQ/L (8-16); AST/SGOT 15 U/L (7-37); BILIRUBIN,TOTAL 0.7 MG/DL (0.2-1.0); BLOOD UREA NITROGEN 31 MG/DL (7-18); CALCIUM LEVEL 9.2 MG/DL (8.8-10.2); CARBON DIOXIDE LEVEL 28 MEQ/L (21-32); CHLORIDE LEVEL 104 MEQ/L (98-107); CREATININE FOR GFR 1.52 MG/DL (0.70-1.30); GLOMERULAR FILTRATION RATE 46.9 (>35); GLUCOSE, FASTING 131 MG/DL (70-100); POTASSIUM SERUM 4.7 MEQ/L (3.5-5.1); SODIUM LEVEL 141 MEQ/L (136-145); TOTAL PROTEIN 7.6 GM/DL (6.4-8.2)
[2018-03-09 11:30] LABS: ESTIMATED AVERAGE GLUCOSE 209 MG/DL (60-110); HEMOGLOBIN A1c 8.9 %
== END ==
LOC: M SFHCPLAZ 08:02
DX: I10 Essential (primary) hypertension (principal); E10.9 Type 1 diabetes mellitus without complications; Z86.2 Personal history of diseases of the blood and blood-forming organs and certain disorders involving the immune mechanism
CPT/HCPCS: 83735

== ENCOUNTER → 2018-07-20 | Outpatient (REF) | payer MEDICARE, MEDICAID ==
[2018-07-20 10:41] LABS: HEMATOCRIT 39.9 % (42.0-52.0); HEMOGLOBIN 12.9 g/dl (13.5-17.5); MEAN CORPUSCULAR HEMOGLOBIN 29.6 pg (27.0-33.0); MEAN CORPUSCULAR HGB CONC 32.3 g/dl (32.0-36.5); MEAN CORPUSCULAR VOLUME 91.5 fl (80.0-96.0); PLATELET COUNT, AUTOMATED 252 10^3/uL (150-450); RED BLOOD COUNT 4.36 10^6/uL (4.30-6.10); RED CELL DISTRIBUTION WIDTH 13.2 % (11.5-14.5)
[2018-07-20 10:56] LABS: ESTIMATED AVERAGE GLUCOSE 171 MG/DL (60-110); HEMOGLOBIN A1c 7.6 %
[2018-07-20 11:12] LABS: ALBUMIN 4.1 GM/DL (3.2-5.2); ALBUMIN/GLOBULIN RATIO 1.32 (1.00-1.93); ALKALINE PHOSPHATASE 107 U/L (45-117); ALT/SGPT 23 U/L (12-78); ANION GAP 7 MEQ/L (8-16); AST/SGOT 22 U/L (7-37); BILIRUBIN,TOTAL 0.7 MG/DL (0.2-1.0); BLOOD UREA NITROGEN 28 MG/DL (7-18); CALCIUM LEVEL 9.1 MG/DL (8.8-10.2); CARBON DIOXIDE LEVEL 28 MEQ/L (21-32); CHLORIDE LEVEL 108 MEQ/L (98-107); CHOLESTEROL LEVEL 124 MG/DL (<200); CHOLESTEROL RISK RATIO 2.066 (<5); CREATININE FOR GFR 1.55 MG/DL (0.70-1.30); GLOMERULAR FILTRATION RATE 45.8 (>35); GLUCOSE, FASTING 100 MG/DL (70-100); HDL CHOLESTEROL 60 MG/DL (>40); LDL CHOLESTEROL 52 MG/DL (<100); MAGNESIUM LEVEL 2.1 MG/DL (1.8-2.4); NON-HDL-C 64 MG/DL; POTASSIUM SERUM 4.7 MEQ/L (3.5-5.1); SODIUM LEVEL 143 MEQ/L (136-145); TOTAL PROTEIN 7.2 GM/DL (6.4-8.2); TRIGLYCERIDES LEVEL 60 MG/DL (<150)
[2018-07-20 11:19] LABS: PTH INTACT 81.9 PG/ML (18.5-88.0)
[2018-07-20 11:20] LABS: FOLATE 11.8 NG/ML; VITAMIN B12 LEVEL 282 PG/ML
== END ==
DX: N18.3 Chronic kidney disease, stage 3 (moderate) (principal); E10.9 Type 1 diabetes mellitus without complications; E78.00 Pure hypercholesterolemia, unspecified
CPT/HCPCS: 82746

== ENCOUNTER 2018-09-20 12:34 | Inpatient (IN) | payer MEDICARE, MEDICAID ==
[~2018-09-20] VITALS: Ht 167.6 cm; Wt 60.9 kg
[~2018-09-20 12:34] MED LIST changes: +AMLO10TA5 PO; +ASPI1TAB15 PO; +ASPI81TA85 PO; +ASPI81TAEC PO; +INSUHUMDS SC; +LEVE1INJ5 SC; -LOSA50TA20 PO; +LOSA50TA88 PO; +LOVE1INJ2 SC; +NORC1TAB4 PO; +NOVOINJ3 SC; +TYLE500T78 PO; +VANC125C2 PO
[2018-09-20] MEDS ORDERED: NS 1,000 ML IV SCH (12:59)
[2018-09-20] MEDS ORDERED: METOCLOPRAMIDE INJ 10MG/2ML VIAL (J2765) IV ONE (13:00)
[2018-09-20 13:20] LABS: BASO % 0.2 % (0.0-1.0); EOS # 0.1 10^3/uL (0.0-0.50); EOS % 0.5 % (0.0-3.0); HEMATOCRIT 40.2 % (42.0-52.0); HEMOGLOBIN 13.1 g/dl (13.5-17.5); LYMPH # 0.9 10^3/uL (1.5-4.5); LYMPH % 7.3 % (24.0-44.0); MEAN CORPUSCULAR HEMOGLOBIN 30.1 pg (27.0-33.0); MEAN CORPUSCULAR HGB CONC 32.6 g/dl (32.0-36.5); MEAN CORPUSCULAR VOLUME 92.4 fl (80.0-96.0); MONO # 0.6 10^3/uL (0.0-0.8); MONO % 4.9 % (0.0-5.0); NEUTROPHILS # 10.1 10^3/uL (1.8-7.7); NEUTROPHILS % 86.8 % (36.0-66.0); PLATELET COUNT, AUTOMATED 233 10^3/uL (150-450); RED BLOOD COUNT 4.35 10^6/uL (4.30-6.10); WHITE BLOOD COUNT 11.6 10^3/uL (4.0-10.0)
[2018-09-20] MEDS ORDERED: VITA10002 PO (13:30)
[2018-09-20] MEDS ORDERED: HUMA100I5 SC ×2 (13:30)
[2018-09-20] MEDS ORDERED: LEVE1INJ5 SC (13:30)
[2018-09-20 13:31] LABS: INR 1.06
--- NOTE | 2018-09-20 13:34 | REP ---
CT HEAD WITHOUT CONTRAST: HISTORY: Altered mental status. COMPARISON: 12/15/2017 An acute intraparenchymal hematoma is present in the right temporal lobe. The hematoma measures 3.1 cm in tranverse x 3.7 cm in AP dimensions. A small amount of surrounding edema is present. There is mass effect with effacement of the overlying cortical sulci and partial effacement of the temporal horn and atrium of the right lateral ventricle. There is minimal midline shift to the left. A small amount of intraventricular hemorrhage is present. Areas of decreased attenuation are present in the periventricular white matter. This represents small vessel ischemic disease. The ventricular system and cortical sulci are dilated consistent with mild volume loss. There is no extracerebral collection. The visualized sinuses are clear. IMPRESSION: There is an acute 3.1 cm intraparenchymal hematoma in the right temporal lobe with mass effect and minimal midline shift to the left. A small amount of intraventricular hemorrhage is present. Results were discussed with Rigo Watkins at 1:30 p.m. this date. Electronically Signed by Linwood Truong MD 09/20/2018 01:36 P
[2018-09-20] MEDS ORDERED: AMLO5TAB6 PO (13:36)
[2018-09-20] MEDS ORDERED: MOBI4TAB PO (13:36)
[2018-09-20 13:48] LABS: ACETAMINOPHEN LEVEL 2.3 UG/ML (10.0-30.0); ALBUMIN 4.1 GM/DL (3.2-5.2); ALT/SGPT 16 U/L (12-78); BILIRUBIN,DIRECT 0.3 MG/DL (0.0-0.2); BILIRUBIN,TOTAL 0.8 MG/DL (0.2-1.0); BLOOD UREA NITROGEN 26 MG/DL (7-18); CARBON DIOXIDE LEVEL 24 MEQ/L (21-32); CHLORIDE LEVEL 103 MEQ/L (98-107); CPK CREATINE PHOSPHOKINASE 133 U/L (39-308); CREATININE FOR GFR 1.41 MG/DL (0.70-1.30); GLOMERULAR FILTRATION RATE 51.1 (>35); GLUCOSE, FASTING 199 MG/DL (70-100); MB/CK RELATIVE INDEX 1.28 (< OR =4); POTASSIUM SERUM 4.4 MEQ/L (3.5-5.1); SALICYLATE LEVEL < 1.7 MG/DL (5.0-30.0); SODIUM LEVEL 136 MEQ/L (136-145); TOTAL PROTEIN 7.8 GM/DL (6.4-8.2); TROPONIN I < 0.02 NG/ML (< 0.10)
[2018-09-20 14:35] VITALS: BP 161/71
[2018-09-20 15:28] LABS: AMPHETAMINES LEVEL URINE NEGATIVE (NEGATIVE); BARBITURATES URINE NEGATIVE (NEGATIVE); BENZODIAZEPINES URINE NEGATIVE (NEGATIVE); CANNABINOIDS URINE NEGATIVE (NEGATIVE); COCAINE METABOLITE URINE NEGATIVE (NEGATIVE); METHADONE URINE NEGATIVE (NEGATIVE); OPIATES URINE NEGATIVE (NEGATIVE); PHENCYCLIDINE URINE NEGATIVE (NEGATIVE)
[2018-09-20] MEDS ORDERED: MORPHINE 4 MG/ML 1ML VIAL/SYRINGE (J2270) IV ONE (16:30)
[2018-09-20] MEDS ORDERED: levETIRAcetam INJection 1,000 MG in D5W 100 ML IV ONE (17:15)
[2018-09-20] MEDS ORDERED: niMODipine 30 MG CAP PO SCH ×2 (17:15→18:00)
--- NOTE | 2018-09-20 18:13 | ECGEPIP ---
Stationary ECG Study [facility] - ED Test Date: 2018-09-20 Pat Name: CEDRIC STEELE Department: Room: - Gender: M Lead Sustainability Specialist: : 1935 Requested By: SHAHEEN MONTANA Order Number: [id number] Reading MD: Helen Toro Measurements Intervals [place] Rate: 78 P: 33 ID: [id number] QRS: 43 QRSD: 86 T: 54 QT: 359 QTc: 410 Interpretive Statements SINUS RHYTHM LOW QRS VOLTAGE LIMB LEADS NONSPECIFIC ST T WAVE CHANGES 11/20/[address] T WAVE CHANGES Electronically Signed On 09-20-2018 18:13:02 EST by Helen Toro
[2018-09-20] MEDS ORDERED: ONDANSETRON 4MG/2ML VIAL (J2405) IV PRN (20:45)
[2018-09-20] MEDS ORDERED: niCARdipine IV 40 MG in APPROPRIATE DILUENT 1 EA IV SCH (20:45)
[2018-09-20] MEDS ORDERED: D5W/0.45% SODIUM CHLORIDE 1,000 ML IV SCH (20:46)
[2018-09-20] MEDS ORDERED: DEXTROSE 50% 50 ML SYRINGE IV PRN (21:00)
[2018-09-20] MEDS ORDERED: GLUCAGON FOR INJ 1 MG VIAL (J1610) SC PRN (21:00)
[2018-09-20] MEDS ORDERED: LORazepam 2 MG/ML VIAL (J2060) IV PRN (21:00)
[2018-09-20] MEDS ORDERED: GLUCOSE 4 GM CHEW TABLET PO PRN (21:00)
--- NOTE | 2018-09-20 23:09 | HPE ---
DATE OF ADMISSION: 09/20/2018 CHIEF COMPLAINT: Altered mental status, headache, multiple episodes of nausea, vomiting. HISTORY OF THE PRESENT ILLNESS: The patient is an 82-year-old male who resides at [facility] living [facility]. He has a significant past medical history of diabetes with nephropathy, retinopathy, coronary artery disease, status post coronary artery bypass graft (CABG), BPH, hyperlipidemia, hypertension, chronic kidney disease stage III. He was brought in with complaints of multiple episodes of nonbloody, nonbilious vomiting over the last 24 hours with headache and worsening mentation. The patient does have mild baseline dementia, as per family who is at the bedside. Most of the history is obtained as per the family as the patient is very confused and sedated, difficult to arouse during my exam. As per the family, the patient was fully functional, operating a motor vehicle. Over the past several days, complained of headache, nausea, vomiting the past few days, which brought him to the emergency room. He was noted on CT to have a 3.1 intraparenchymal hematoma in the right temporal lobe with mass effect and minimal midline shift to the left, and a small amount of intraventricular hemorrhage is present. A lengthy discussion was held with the family, including the healthcare proxy, oldest son, Dipesh Cervantes, and it was ultimately decided that the patient is to be made comfort care only. Family is, however, requesting a CT repeat in the morning to decipher if his hemorrhage had progressed; however, do not want any intervention. A DO NOT RESUSCITATE (DNR), DO NOT INTUBATE (DNI) Medical Orders for Life-Sustaining Treatment (MOLST) form was completed, which telephone consent obtained from the healthcare proxy, Dipesh Cervantes, as well as son present at bedside. Again, the exam is limited at this point because the patient is confused, difficult to arouse. PAST MEDICAL HISTORY: See history of the present illness. PAST SURGICAL HISTORY: Had shoulder replacement, hernia repair, prostate biopsy, CABG. HOME MEDICATIONS: Include Tylenol, Norvasc, aspirin, Lipitor, B12, insulin, meloxicam. SOCIAL HISTORY: No history of alcohol, tobacco or illicit drug use. FAMILY HISTORY: Noncontributory. REVIEW OF SYSTEMS: Unable to complete due to the patient's underlying mentation. VITAL SIGNS PRESENT ON ADMISSION: Temperature 98.6, pulse of 78, respirations of 18, saturating at 98% on room air. Blood pressure 195/91. PHYSICAL EXAM: He is an elderly male, somnolent, difficult to arouse, confused but arousable to noxious stimuli. Head is normocephalic, atraumatic Eyes: Pupils are equal, round, reactive to light. Neck is supple. No jugular venous pressure (JVP). Lungs: Patient is unable to comply with the exam, but good air entry on the anterior chest. No crackles or wheezing. Cardiovascular: Regular rate and rhythm. Normal S1, S2. Abdomen: The abdomen is soft. There is positive bowel sounds. Extremities: There is no edema. Skin appears to be intact. Neurological Exam: Again, unable to complete due to the underlying mentation, but patient is arousable to noxious stimuli only, and his pupils are reactive to light. LABS AND IMAGING: Completed in the emergency room (ER). White count of 11, hemoglobin and hematocrit of 13 over 40, platelet count of 233. Coagulation studies (Coags) within normal limits. Chemistry shows a BUN and creatinine of 26 over 1.4, baseline creatinine is 1.3. UA is negative. Toxicology is unremarkable. Fingerstick of 234. Imaging completed in the emergency room. Chest x-ray is unremarkable. CT of the head shows an acute 3.1 cm intraparenchymal hematoma in the right temporal lobe with mass effect and a midline shift to the left, as well as a small intraventricular component to the hemorrhage. ASSESSMENT AND PLAN: Hemorrhagic stroke. Patient to be made comfort measures only. Hospice consult in the morning. Discussed with family at bedside. Oxygen as needed, IV fluids, deep vein thrombosis (DVT) prophylaxis. MOLST form in the chart. For the rest of his chronic medical conditions - coronary artery disease, status post CABG, BPH, hyperlipidemia, hypertension, chronic kidney disease stage III, all medications are to be held. Supportive DVT prophylaxis. Sequential compression devices (SCDs). Gastrointestinal (GI) prophylaxis is not indicated. A repeat CT of the head ordered for the morning at the request of the family. DEVAN
[2018-09-20 23:30] VITALS: BP 161/72
[2018-09-21] MEDS ORDERED: HumaLOG INSULIN (NovoLOG) PER UNIT SC SCH
[2018-09-21] MEDS ORDERED: diphenhydrAMINE INJ 50MG/ML VIAL (J1200) IV ONE (01:00)
[2018-09-21] MEDS: MORPHINE 4 MG/ML 1ML VIAL/SYRINGE (J2270) IV PRN ×3 (02:27→13:52)
--- NOTE | 2018-09-21 05:08 | REP ---
PORTABLE CHEST, ONE VIEW: HISTORY: Altered mental status. COMPARISON: 12/15/2017 Linear densities are present in the left lower lobe, consistent with atelectasis or scar. The right lung is clear. The heart is normal in size. The pulmonary vasculature is normal in appearance. The patient is status post right shoulder arthroplasty. IMPRESSION: Left lower lobe atelectasis or scar. Electronically Signed by Linwood Truong MD 09/21/2018 09:58 A
[2018-09-21] MEDS ORDERED: levETIRAcetam INJection 500 MG in D5W MINI-BAG PLUS 100 ML IV SCH (06:00)
--- NOTE | 2018-09-21 07:25 | IPNPDOC ---
Date Seen The patient was seen on 09/21/18. Progress Note SUBJECTIVE: Patient seen and examined at the bedside. Chart has been reviewed. Son at the bedside,re-iterated, "He does not want to suffer. He was just out to [place] last week with his grand-daughter. He would not want to be like this." Other brother requesting repeat CT Head to discuss overall progression. No purposeful movement and not arousable. OBJECTIVE: VITAL SIGN: PLS SEE BELOW PHYSICAL EXAM: Gen: He is an elderly male, somnolent, difficult to arousedoes not follow commands, waves his left hand in the air Head is normocephalic, atraumatic Neck is supple. No jugular venous pressure (JVP). Lungs:good air entry on the anterior chest. No crackles or wheezing. Cardiovascular: Regular rate and rhythm. Normal S1, S2. Abdomen: The abdomen is soft. There is positive bowel sounds. Extremities: There is no edema. Skin appears to be intact. Neurological Exam: Again, unable to complete due to the underlying mentation, but patient is arousable to noxious stimuli only, and his pupils are reactive to light. LABS AND IMAGING: Completed in the emergency room (ER). White count of 11, hemoglobin and hematocrit of 13 over 40, platelet count of 233. Coagulation studies (Coags) within normal limits. Chemistry shows a BUN and creatinine of 26 over 1.4, baseline creatinine is 1.3. UA is negative. Toxicology is unremarkable. Fingerstick of 234. Imaging completed in the emergency room. Chest x-ray is unremarkable. CT of the head shows an acute 3.1 cm intraparenchymal hematoma in the right temporal lobe with mass effect and a midline shift to the left, as well as a small intraventricular component to the hemorrhage. ASSESSMENT AND PLAN: The patient is an 82-year-old male who resides at [facility] assisted living [facility]. He has a significant past medical history of diabetes with nephropathy, retinopathy, coronary artery disease, status post coronary artery bypass graft (CABG), BPH, hyperlipidemia, hypertension, chronic kidney disease stage III. He was brought in with complaints of multiple episodes of nonbloody, nonbilious vomiting over the last 24 hours with headache and worsening mentation. The patient does have mild baseline dementia, as per family who is at the bedside. Most of the history is obtained as per the family as the patient is very confused and sedated, difficult to arouse during my exam. As per the family, the patient was fully functional, operating a motor vehicle. Over the past several days, complained of headache, nausea, vomiting the past few days, which brought him to the emergency room. He was noted on CT to have a 3.1 intraparenchymal hematoma in the right temporal lobe with mass effect and minimal midline shift to the left, and a small amount of intraventricular hemorrhage is present. A lengthy discussion was held with the family, including the healthcare proxy, oldest son, Dipesh Cervantes, and it was ultimately decided that the patient is to be made comfort care only. Family is, however, requesting a CT repeat in the morning to decipher if his hemorrhage had progressed; however, do not want any intervention. A DO NOT RESUSCITATE (DNR), DO NOT INTUBATE (DNI) Medical Orders for Life-Sustaining Treatment (MOLST) form was completed, which telephone consent obtained from the healthcare proxy, Dipesh Cervantes, as well as son present at bedside. Again, the exam is limited at this point because the patient is confused, difficult to arouse. Hemorrhagic stroke. Patient to be made comfort measures only. Hospice consult in the morning. Discussed with family at bedside. Oxygen as needed, IV fluids, deep vein thrombosis (DVT) prophylaxis. MOLST form in the chart. coronary artery disease, status post CABG, no ischemic symptoms BPH, chronic hyperlipidemia, chronic hypertension, chronic chronic kidney disease stage III Supportive DVT prophylaxis. Sequential compression devices (SCDs). Gastrointestinal (GI) prophylaxis is not indicated. A repeat CT of the head ordered for the morning at the request of the family CODE Status: DNR/DNI PROGNOSIS: POOR DISPOSITION: COMFORT MEASURES ONLY. hospice house if bed available. VS, I&O, 24H, Fishbone Vital Signs/I&O Vital Signs Date Time Temp Pulse Resp B/P (MAP) Pulse Ox O2 Delivery O2 Flow Rate FiO2 09/20/18 23:30 100.1 83 20 161/72 (101) 96 Room Air Laboratory Data 24H LABS Laboratory Tests 2 09/20/18 13:05: Immature Granulocyte % (Auto) 0.3, White Blood Count 11.6H, Red Blood Count 4.35, Hemoglobin 13.1L, Hematocrit 40.2L, Mean Corpuscular Volume 92.4, Mean Corpuscular Hemoglobin 30.1, Mean Corpuscular Hemoglobin Concent 32.6, Red Cell Distribution Width 13.1, Platelet Count 233, Neutrophils (%) (Auto) 86.8H, Ly mphocytes (%) (Auto) 7.3L, Monocytes (%) (Auto) 4.9, Eosinophils (%) (Auto) 0.5, Basophils (%) (Auto) 0.2, Neutrophils # (Auto) 10.1H, Lymphocytes # (Auto) 0.9L, Monocytes # (Auto) 0.6, Eosinophils # (Auto) 0.1, Basophils # (Auto) 0.0, Nucleated Red Blood Cells % (auto) 0.0, Prothrombin Time 14.0, Prothromb Time International Ratio 1.06, Anion Gap 9, Glomerular Filtration Rate 51.1, Calcium Level 9.0, Aspartate Amino Transf (AST/SGOT) 21, Alanine Aminotransferase (ALT/SGPT) 16, Alkaline Phosphatase 119H, Total Bilirubin 0.8, Direct Bilirubin 0.3H, Total Creatine Kinase 133, Creatine Kinase MB 2.0, Creatine Kinase MB Relative Index 1.28, Troponin I < 0.02, Total Protein 7.8, Albumin 4.1, [place] min/Globulin Ratio 1.11, Thyroid Stimulating Hormone (TSH) 1.150, Salicylates Level < 1.7L, Acetaminophen Level 2.3L 09/20/18 14:43: Urine Color STRAW, Urine Appearance CLEAR, Urine pH 7.0, Urine Specific [place] 1.011, Urine Protein 1+H, Urine Glucose (UA) 1+H, Urine Ketones 1+H, Urine Blood 1+H, Urine Nitrite NEGATIVE, Urine Bilirubin NEGATIVE, Urine Urobilinogen 0.2, Urine Leukocyte Esterase NEGATIVE, Urine WBC (Auto) 1, Urine RBC (Auto) 6H, Urine Hyaline Casts (Auto) 0, Urine Bacteria (Auto) NEGATIVE, Urine Squamous Epithelial Cells 0, Urine Sperm (Auto) , Urine Amphetamines Screen NEGATIVE, Urine Benzodiazepines Screen NEGATIVE, Urine Opiates Screen NEGATIVE, Urine Methadone Screen NEGATIVE, Urine Barbiturates Screen NEGATIVE, Urine Phencyclidine Screen NEGATIVE, Urine Cocaine Metabolite Screen NEGATIVE, Urine Cannabinoids Screen NEGATIVE 09/20/18 14:49: Bedside Glucose (Misc Panel) 199H 09/20/18 18:13: Bedside Glucose (Misc Panel) 234H CBC/BMP Laboratory Tests 09/20/18 13:05 Red Blood Count 4.35, Mean Corpuscular Volume 92.4, Mean Corpuscular Hemoglobin 30.1, Mean Corpuscular Hemoglobin Concent 32.6, Red Cell Distribution Width 13.1, Neutrophils (%) (Auto) 86.8 H, Lymphocytes (%) (Auto) 7.3 L, Monocytes (%) (Auto) 4.9, Eosinophils (%) (Auto) 0.5, Basophils (%) (Auto) 0.2, Neutrophils # (Auto) 10.1 H, Lymphocytes # (Auto) 0.9 L, Monocytes # (Auto) 0.6, Eosinophils # (Auto) 0.1, Basophils # (Auto) 0.0 CIRILO KONG MD Sep 21, 2018 07:02
--- NOTE | 2018-09-21 09:56 | HPE ---
DATE OF ADMISSION: 09/20/2018 CHIEF COMPLAINT: Headache, nausea, vomiting, altered mental status. HISTORY OF PRESENT ILLNESS: The patient is an 82-year-old male. He resides at [facility]. He has significant past medical history of diabetes nephropathy, retinopathy, coronary artery disease (CAD) status post coronary artery bypass graft (CABG), benign prostatic hypertrophy (BPH), hyperlipidemia, hypertension, chronic kidney disease (CKD) stage III, who presents to the emergency room with worsening mentation, multiple episodes of non-bloody, non- bilious vomiting, complaints of a headache. In the emergency, he was shown to have intracranial hemorrhaging, 3.1 cm intraparenchymal hematoma in the right temporal lobe with mass effect and minimal midline shift to the left, a small amount of intraventricular hemorrhage is present. DICTATION ENDS......
--- NOTE | 2018-09-21 11:15 | REP ---
CT Head without contrast HISTORY: Intracranial hemorrhage COMPARISON: 09/20/2018 An acute intraparenchymal hematoma is present in the right temporal lobe. The hematoma measures 3.1 cm in transverse by 3.7 cm in AP dimensions . Surrounding edema is present. There is mass effect with effacement of the overlying cortical sulci and partial effacement of the temporal horn and atrium of the right lateral ventricle with minimal midline shift to the left. These findings are unchanged compared to the previous study. Intraventricular hemorrhage is present that is slightly increased compared to the previous study. A small amount of subarachnoid hemorrhage is present. The ventricular system and cortical sulci are dilated consistent with mild volume loss. Areas of decreased attenuation are present in the periventricular white matter. This represents small-vessel ischemic disease. There is no extra cerebral collection. There is no fracture. The visualized sinuses are clear. IMPRESSION: 1. Right temporal lobe intraparenchymal hematoma with mass effect and minimal midline shift to the left unchanged compared to the previous study. 2. Intraventricular hemorrhage slightly increased compared to the previous study. 3. There is a small amount of subarachnoid hemorrhage. Electronically Signed by Linwood Truong MD 09/21/2018 11:06 A
[2018-09-22] MEDS: ACETAMINOPHEN 650 MG SUPP PR PRN ×2 (01:27→14:59)
[2018-09-22] MEDS ORDERED: MORPHINE 10MG/0.5ML ORAL CONCENTRATE SOLUTION U/D SL PRN (07:45)
--- NOTE | 2018-09-22 08:42 | IPNPDOC ---
Date Seen The patient was seen on 09/22/18. Progress Note SUBJECTIVE: Patient seen and examined at the bedside. Chart has been reviewed. 3 sons present at the bedside requesting morphine iv for patient's pain. He appears to be more labored with increased use of accessory respiratory muscles with abdominal restractions and increased apneic episodes. OBJECTIVE: VITAL SIGN: PLS SEE BELOW PHYSICAL EXAM: Gen:non responsive. mouth breathing. pinpoint pupils Head is normocephalic, atraumatic Neck is supple. No jugular venous pressure (JVP). Lungs:good air entry on the anterior chest. No crackles or wheezing.more labored breathing with increased use of accessory respiratory muscles with abdominal retractions and increased apneic episodes. Cardiovascular: Regular rate and rhythm. Normal S1, S2. Abdomen: The abdomen is soft. There is positive bowel sounds. Extremities: There is no edema. Skin appears to be intact. Neurological Exam: Again, unable to complete due to the underlying mentation, but patient is arousable to noxious stimuli only, and his pupils are reactive to light. LABS AND IMAGING: Completed in the emergency room (ER). White count of 11, hemoglobin and hematocrit of 13 over 40, platelet count of 233. Coagulation studies (Coags) within normal limits. Chemistry shows a BUN and creatinine of 26 over 1.4, baseline creatinine is 1.3. UA is negative. Toxicology is unremarkable. Fingerstick of 234. Imaging completed in the emergency room. Chest x-ray is unremarkable. CT of the head shows an acute 3.1 cm intraparenchymal hematoma in the right temporal lobe with mass effect and a midline shift to the left, as well as a small intraventricular component to the hemorrhage. ASSESSMENT AND PLAN: The patient is an 82-year-old male who resides at [facility] living [facility]. He has a significant past medical history of diabetes with nephropathy, retinopathy, coronary artery disease, status post coronary artery bypass graft (CABG), BPH, hyperlipidemia, hypertension, chronic kidney disease stage III. He was brought in with complaints of multiple episodes of nonbloody, nonbilious vomiting over the last 24 hours with headache and worsening mentation. The patient does have mild baseline dementia, as per family who is at the bedside. Most of the history is obtained as per the family as the patient is very confused and sedated, difficult to arouse during my exam. As per the family, the patient was fully functional, operating a motor vehicle. Over the past several days, complained of headache, nausea, vomiting the past few days, which brought him to the emergency room. He was noted on CT to have a 3.1 intraparenchymal hematoma in the right temporal lobe with mass effect and minimal midline shift to the left, and a small amount of intraventricular hemorrhage is present. A lengthy discussion was held with the family, including the healthcare proxy, oldest son, Dipesh Cervantes, and it was ultimately decided that the patient is to be made comfort care only. Family is, however, requesting a CT repeat in the morning to decipher if his hemorrhage had progressed; however, do not want any intervention. A DO NOT RESUSCITATE (DNR), DO NOT INTUBATE (DNI) Medical Orders for Life-Sustaining Treatment (MOLST) form was completed, which telephone consent obtained from the healthcare proxy, Dipesh Cervantes, as well as son present at bedside. Again, the exam is limited at this point because the patient is confused, difficult to arouse. Hemorrhagic stroke. Patient to be made comfort measures only. Hospice consult in the morning. Discussed with family at bedside. Oxygen as needed, IV fluids, deep vein thrombosis (DVT) prophylaxis. MOLST form in the chart. morphine iv gtt. coronary artery disease, status post CABG, no ischemic symptoms BPH, chronic hyperlipidemia, chronic hypertension, chronic chronic kidney disease stage III Supportive DVT prophylaxis. Sequential compression devices (SCDs). Gastrointestinal (GI) prophylaxis is not indicated. A repeat CT of the head ordered for the morning at the request of the family CODE Status: DNR/DNI PROGNOSIS: POOR DISPOSITION: COMFORT MEASURES ONLY. VS, I&O, 24H, Fishbone Vital Signs/I&O Vital Signs Date Time Temp Pulse Resp B/P (MAP) Pulse Ox O2 Delivery O2 Flow Rate FiO2 09/20/18 23:30 100.1 83 20 161/72 (101) 96 Room Air I&O- Last 24 Hours up to 6 AM 09/22/18 06:00 Intake Total 0 ml Balance 0 ml CIRILO KONG MD Sep 22, 2018 08:42
[2018-09-22] MEDS ORDERED: MORPHINE 4 MG/ML 1ML VIAL/SYRINGE (J2270) IV ONE (08:45)
[2018-09-22] MEDS: MORPHINE SULF IN 0.9% NACL 100 MG in APPROPRIATE DILUENT 1 EA IV SCH ×2 (10:02)
[2018-09-23] MEDS: LORazepam 2 MG/ML VIAL (J2060) IV PRN ×7 (02:24→20:14)
[2018-09-23] MEDS: ATROPINE SULFATE 1% OP SOLN 2 ML BTL SL PRN ×4 (03:37→12:06)
[2018-09-23] MEDS ORDERED: LORazepam 2 MG/ML VIAL (J2060) IV ONE (10:00)
[2018-09-23] MEDS ORDERED: MORPHINE 4 MG/ML 1ML VIAL/SYRINGE (J2270) IV ONE (10:00)
--- NOTE | 2018-09-23 10:00 | IPNPDOC ---
Date Seen The patient was seen on 09/23/18. Progress Note SUBJECTIVE: Patient seen and examined at the bedside. Chart has been reviewed. Pt's son and sister in law at the bedside. pt continues to use abdominal muscles to breathe and has his mouth open. Family is disturbed that patient seems much more uncomfortable, restless, and requests more pain medications, and meds for agitation. "We don't want him to suffer. He would not want to be like this." OBJECTIVE: VITAL SIGN: PLS SEE BELOW PHYSICAL EXAM: Gen:non responsive. mouth breathing. pinpoint pupils Head is normocephalic, atraumatic Neck is supple. No jugular venous pressure (JVP). Lungs:good air entry on the anterior chest. No crackles or wheezing.more labored breathing with increased use of accessory respiratory muscles with abdominal retractions and increased apneic episodes. Cardiovascular: Regular rate and rhythm. Normal S1, S2. Abdomen: The abdomen is soft. There is positive bowel sounds. Extremities: There is no edema. Skin appears to be intact. Neurological Exam: Again, unable to complete due to the underlying mentation, but patient is arousable to noxious stimuli only, and his pupils are reactive to light. LABS AND IMAGING: Completed in the emergency room (ER). White count of 11, hemoglobin and hematocrit of 13 over 40, platelet count of 233. Coagulation studies (Coags) within normal limits. Chemistry shows a BUN and creatinine of 26 over 1.4, baseline creatinine is 1.3. UA is negative. Toxicology is unremarkable. Fingerstick of 234. Imaging completed in the emergency room. Chest x-ray is unremarkable. CT of the head shows an acute 3.1 cm intraparenchymal hematoma in the right temporal lobe with mass effect and a midline shift to the left, as well as a small intraventricular component to the hemorrhage. ASSESSMENT AND PLAN: The patient is an 82-year-old male who resides at [facility] assisted living [facility]. He has a significant past medical history of diabetes with nephropathy, retinopathy, coronary artery disease, status post coronary artery bypass graft (CABG), BPH, hyperlipidemia, hypertension, chronic kidney disease stage III. He was brought in with complaints of multiple episodes of nonbloody, nonbilious vomiting over the last 24 hours with headache and worsening mentation. The patient does have mild baseline dementia, as per family who is at the bedside. Most of the history is obtained as per the family as the patient is very confused and sedated, difficult to arouse during my exam. As per the family, the patient was fully functional, operating a motor vehicle. Over the past several days, complained of headache, nausea, vomiting the past few days, which brought him to the emergency room. He was noted on CT to have a 3.1 intraparenchymal hematoma in the right temporal lobe with mass effect and minimal midline shift to the left, and a small amount of intraventricular hemorrhage is present. A lengthy discussion was held with the family, including the healthcare proxy, oldest son, Dipesh Cervantes, and it was ultimately decided that the patient is to be made comfort care only. Family is, however, requesting a CT repeat in the morning to decipher if his hemorrhage had progressed; however, do not want any intervention. A DO NOT RESUSCITATE (DNR), DO NOT INTUBATE (DNI) Medical Orders for Life-Sustaining Treatment (MOLST) form was completed, which telephone consent obtained from the healthcare proxy, Dipesh Cervantes, as well as son present at bedside. Again, the exam is limited at this point because the patient is confused, difficult to arouse. Hemorrhagic stroke. Patient to be made comfort measures only. Hospice consult in the morning. Discussed with family at bedside. Oxygen as needed, IV fluids, deep vein thrombosis (DVT) prophylaxis. MOLST form in the chart. morphine iv gtt.PRN ativan and PRN morphine. Brain compression due to hemorrhagic CVA with edema and midline shift remains unconscious poor overall prognosis DNR DNI comfort measure only per family, Morphine iv gtt for comfort. coronary artery disease, status post CABG, no ischemic symptoms BPH, chronic hyperlipidemia, chronic hypertension, chronic chronic kidney disease stage III Supportive DVT prophylaxis. Sequential compression devices (SCDs). Gastrointestinal (GI) prophylaxis is not indicated. A repeat CT of the head ordered for the morning at the request of the family CODE Status: DNR/DNI PROGNOSIS: POOR DISPOSITION: COMFORT MEASURES ONLY. VS, I&O, 24H, Fishbone Vital Signs/I&O Vital Signs Date Time Temp Pulse Resp B/P (MAP) Pulse Ox O2 Delivery O2 Flow Rate FiO2 09/20/18 23:30 100.1 83 20 161/72 (101) 96 Room Air I&O- Last 24 Hours up to 6 AM 09/23/18 06:00 Intake Total 0 ml Output Total 1475 ml Balance -1475 ml CIRILO KONG MD Sep 23, 2018 09:38
[2018-09-23 10:24] VITALS: BP 115/66
[2018-09-23] MEDS: MORPHINE SULF IN 0.9% NACL 100 MG in APPROPRIATE DILUENT 1 EA IV SCH ×6 (12:02→23:26)
[2018-09-23] MEDS ORDERED: LORazepam 2 MG/ML VIAL (J2060) IV STA (18:41)
[2018-09-23] MEDS ORDERED: MORPHINE 10 MG/ML 1ML VIAL (J2270) IV ONE (18:45)
[2018-09-23] MEDS ORDERED: MORPHINE 4 MG/ML 1ML VIAL/SYRINGE (J2270) IV PRN (18:45)
[2018-09-23] MEDS ORDERED: LORazepam 2 MG/ML VIAL (J2060) IV PRN (18:45)
[2018-09-23] MEDS ORDERED: SCOPOLAMINE 1MG TRANSDERMAL PATCH TOP SCH (20:00)
[2018-09-23 23:00] VITALS: BP 93/50
[2018-09-24] MEDS: LORazepam 2 MG/ML VIAL (J2060) IV PRN ×9 (00:36→16:09)
[2018-09-24 06:00] VITALS: BP 78/42
[2018-09-24] MEDS: ACETAMINOPHEN 650 MG SUPP PR PRN (06:06)
[2018-09-24] MEDS: MORPHINE SULF IN 0.9% NACL 100 MG in APPROPRIATE DILUENT 1 EA IV SCH ×4 (07:21→14:32)
--- NOTE | 2018-09-24 12:29 | IPNPDOC ---
Date Seen The patient was seen on 09/24/18. Progress Note SUBJECTIVE: Per 2 sons at the bedside, patient has been more apneic last night observed by one son to have had a 30second pause in breathing with notable fever of 101 this morning. He has been agitated and restless at times, but remains unconscious without purposeful movements or cognitiive ability. Pt remains DO NOT RESUSCITATE, DO NOT INTUBATE, COMFORT MEASURES ONLY per patient's prior wishes. Per family request according to pt's explicit consent, he remains [employer]RO[employer] with PRN ativan, and morphine iv gtt to comfort. OBJECTIVE: VITAL SIGN: PLS SEE BELOW PHYSICAL EXAM: Gen:non responsive. mouth breathing. pinpoint pupils. Neck is supple. No jugular venous pressure (JVP). Lungs:good air entry on the anterior chest. No crackles or wheezing.more labored breathing with increased use of accessory respiratory muscles with abdominal retractions and increased apneic episodes. Cardiovascular: Regular rate and rhythm. Normal S1, S2. Abdomen: The abdomen is soft. There is positive bowel sounds. Extremities: There is no edema. Skin appears to be intact. Neurological Exam: Again, unable to complete due to the underlying mentation LABS AND IMAGING: Completed in the emergency room (ER). White count of 11, hemoglobin and hematocrit of 13 over 40, platelet count of 233. Coagulation studies (Coags) within normal limits. Chemistry shows a BUN and creatinine of 26 over 1.4, baseline creatinine is 1.3. UA is negative. Toxicology is unremarkable. Fingerstick of 234. Imaging completed in the emergency room. Chest x-ray is unremarkable. CT of the head shows an acute 3.1 cm intraparenchymal hematoma in the right temporal lobe with mass effect and a midline shift to the left, as well as a small intraventricular component to the hemorrhage. ASSESSMENT AND PLAN: The patient is an 82-year-old male who resides at [facility] assisted living [facility]. He has a significant past medical history of diabetes with nephropathy, retinopathy, coronary artery disease, status post coronary artery bypass graft (CABG), BPH, hyperlipidemia, hypertension, chronic kidney disease stage III. He was brought in with complaints of multiple episodes of nonbloody, nonbilious vomiting over the last 24 hours with headache and worsening mentation. The patient does have mild baseline dementia, as per family who is at the bedside. Most of the history is obtained as per the family as the patient is very confused and sedated, difficult to arouse during my exam. As per the family, the patient was fully functional, operating a motor vehicle. Over the past several days, complained of headache, nausea, vomiting the past few days, which brought him to the emergency room. He was noted on CT to have a 3.1 intraparenchymal hematoma in the right temporal lobe with mass effect and minimal midline shift to the left, and a small amount of intraventricular hemorrhage is present. A lengthy discussion was held with the family, including the healthcare proxy, oldest son, Dipesh Cervantes, and it was ultimately decided that the patient is to be made comfort care only. Family is, however, requesting a CT repeat in the morning to decipher if his hemorrhage had progressed; however, do not want any intervention. A DO NOT RESUSCITATE (DNR), DO NOT INTUBATE (DNI) Medical Orders for Life-Sustaining Treatment (MOLST) form was completed, which telephone consent obtained from the healthcare proxy, Dipesh Cervantes, as well as son present at bedside. Again, the exam is limited at this point because the patient is confused, difficult to arouse. Hemorrhagic stroke. Patient to be made comfort measures only. Hospice consult in the morning. Discussed with family at bedside. Oxygen as needed, IV fluids, deep vein thrombosis (DVT) prophylaxis. MOLST form in the chart. morphine iv gtt.PRN ativan and PRN morphine. Brain compression due to hemorrhagic CVA with edema and midline shift remains unconscious poor overall prognosis DNR DNI comfort measure only per family, Morphine iv gtt for comfort. coronary artery disease, status post CABG, no ischemic symptoms BPH, chronic hyperlipidemia, chronic hypertension, chronic chronic kidney disease stage III Supportive DVT prophylaxis. Sequential compression devices (SCDs). Gastrointestinal (GI) prophylaxis is not indicated. A repeat CT of the head ordered for the morning at the request of the family CODE Status: DNR/DNI PROGNOSIS: POOR DISPOSITION: COMFORT MEASURES ONLY,DNR/DNI. VS, I&O, 24H, Fishbone Vital Signs/I&O Vital Signs Date Time Temp Pulse Resp B/P (MAP) Pulse Ox O2 Delivery O2 Flow Rate FiO2 09/24/18 09:00 Nasal Cannula 4.0 09/24/18 06:00 101.1 104 11 78/42 (54) 91 I&O- Last 24 Hours up to 6 AM 09/24/18 06:00 Intake Total 0 ml Output Total 125 ml Balance -125 ml CIRILO KONG MD Sep 24, 2018 12:29
== END 2018-09-24 16:20 | disposition expired | DRG 64 ==
LOC: M ED 12:34 → M ED INP 20:37 → M MS5PR 23:30
PROVIDERS: ADMIT General Practice; ATTEND General Practice
DX: I61.5 Nontraumatic intracerebral hemorrhage, intraventricular (principal); G93.5 Compression of brain; I10 Essential (primary) hypertension; N18.3 Chronic kidney disease, stage 3 (moderate); F03.90 Unspecified dementia, unspecified severity, without behavioral disturbance, psychotic disturbance, mood disturbance, and anxiety; R40.20 Unspecified coma